=== PATIENT | male | born 1950 | race Caucasian/White ===

== ENCOUNTER 2018-11-27 06:55 | Inpatient (IN) | payer MEDICARE, SELFPAY ==
[2018-11-27] VITALS (17 sets, daily range): BP systolic 105–163; BP diastolic 69–129; PULSE 51–123; RESP 16–19; TEMP 36.4–36.7; O2SAT 93–99; BMI 33.1; BMI 32.0
--- NOTE | 2018-11-27 07:04 | EKG12_ITS ---
Test Reason : NEURO Blood Pressure : / mmHG Vent. Rate : 111 BPM Atrial Rate : 111 BPM P-R Int : 000 ms QRS Dur : 090 ms QT Int : 352 ms P-R-T Axes : 000 -28 013 degrees QTc Int : 478 ms Atrial fibrillation with rapid ventricular response Leftward axis Low voltage QRS (LIMB LEADS) Abnormal ECG Confirmed by BRENDA LOYA, JAIMIE ([id number]), rewrite editor PETER PATEL ([id number]) on 11/30/2018 1:36:29 PM Referred By: [facility] Confirmed By:JAIMIE GUTIERREZ MD
--- NOTE | 2018-11-27 07:04 | CT_ITS ---
We are attempting to reach an attending provider to discuss findings. An addendum with communication details will be sent when the communication is complete. HISTORY: APHASIA EXAMINATION: CT Head or Brain W/O Contrast TECHNIQUE: Multiple axial images were obtained of the brain without intravenous contrast. A radiation dose optimization technique was used for this scan. IV Contrast dosage and agent: None. COMPARISON: None FINDINGS: Normal ventricles. Mild cerebral cortical atrophy. Localized encephalomalacia compatible with remote infarction involving the posterior left frontal cortical and subcortical region. This area measures up to 3 cm in maximal dimension. This appears old. No mass-effect or acute hemorrhage seen. White matter small vessel chronic ischemic changes. Posterior fossa structures are unremarkable. No suspicious extra-axial fluid collection. Calvarium appears intact. As visualized, the mastoids and paranasal sinuses are clear. CT/Brain/Head without Contrast IMPRESSION: 1. No hemorrhage or acute intracranial disease identified. 2. 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 Individualized dose optimization techniques were used for this CT. at 0736 Reported and signed by: Oniel Zaragoza MD Electronically Signed: Oniel Zaragoza, at 7:35 EDT Tel , Service support ,
[2018-11-27 07:05] LABS: Bedside Glucose 138 mg/dL (70-110)
--- NOTE | 2018-11-27 07:13 | CT_ITS ---
HISTORY: CVA. APHASIA EXAMINATION: CTA Neck WO/W Contrast TECHNIQUE: Routine carotid CT angiogram protocol was performed without and with IV contrast. Nascet criteria using the distal ICAs for comparison were used for evaluation of stenoses. 3D reconstructions were reviewed. A radiation dose optimization technique was used for this scan. IV Contrast dosage and agent: 100 Isovue 370 COMPARISON: None FINDINGS: AORTIC ARCH AND BRANCHES: Normal anatomy, patent. RIGHT CCA: No occlusion, significant stenosis or dissection. RIGHT ICA: No occlusion, significant stenosis or dissection. LEFT CCA: No occlusion, significant stenosis or dissection. LEFT ICA: No occlusion, significant stenosis or dissection. RIGHT VERTEBRAL ARTERY: No occlusion, significant stenosis or dissection. LEFT VERTEBRAL ARTERY: No occlusion, significant stenosis or dissection. IMPRESSION: 1. Negative exam. No carotid stenosis or arterial dissection. 2. Bilateral patency of the vertebral arteries. Individualized dose optimization techniques were used for this CT. at 0751 Reported and signed by: Oniel Zaragoza MD N.B. : The above information has been verbally conveyed by Oniel Zaragoza to Marin Ambrosio MD, on 11/27/2018 07:50:12 (ET). Electronically Signed: Oniel Zaragoza, at 7:49 EDT Tel , Service support , HISTORY: CVA. APHASIA EXAMINATION: CTA Head WO/W Contrast TECHNIQUE: Routine [place]/brain CT angiogram protocol was performed following IV contrast. 3D reconstructions were reviewed. A radiation dose optimization technique was used for this scan. IV Contrast dosage and agent: 100 Isovue 370 COMPARISON: None FINDINGS: Normal contrast filling of the carotid and vertebrobasilar systems. Bilateral filling of the anterior, middle, and posterior cerebral arteries. No aneurysm, vascular malformation, or large vessel occlusion is seen. No arterial dissection identified. Remote appearing infarct with low density encephalomalacia at the posterior left frontal lobe. CT/CTA Head W/WO Contrast IMPRESSION: 1. CTA exam is currently negative. No aneurysm or acute vessel occlusion. No arterial dissection seen. Individualized dose optimization techniques were used for this CT. at 0748 Reported and signed by: Oniel Zaragoza MD N.B. : The above information has been verbally conveyed by Oniel Zaragoza to Marin Ambrosio MD, on 11/27/2018 07:50:12 (ET). Electronically Signed: Oniel Zaragoza, at 7:47 EDT Tel , Service support ,
--- NOTE | 2018-11-27 07:13 | CT_ITS ---
HISTORY: CVA. APHASIA EXAMINATION: CTA Neck WO/W Contrast TECHNIQUE: Routine carotid CT angiogram protocol was performed without and with IV contrast. Nascet criteria using the distal ICAs for comparison were used for evaluation of stenoses. 3D reconstructions were reviewed. A radiation dose optimization technique was used for this scan. IV Contrast dosage and agent: 100 Isovue 370 COMPARISON: None FINDINGS: AORTIC ARCH AND BRANCHES: Normal anatomy, patent. RIGHT CCA: No occlusion, significant stenosis or dissection. RIGHT ICA: No occlusion, significant stenosis or dissection. LEFT CCA: No occlusion, significant stenosis or dissection. LEFT ICA: No occlusion, significant stenosis or dissection. RIGHT VERTEBRAL ARTERY: No occlusion, significant stenosis or dissection. LEFT VERTEBRAL ARTERY: No occlusion, significant stenosis or dissection. IMPRESSION: 1. Negative exam. No carotid stenosis or arterial dissection. 2. Bilateral patency of the vertebral arteries. Individualized dose optimization techniques were used for this CT. at 0751 Reported and signed by: Oniel Zaragoza MD N.B. : The above information has been verbally conveyed by Oniel Zaragoza to Marin Ambrosio MD, on 11/27/2018 07:50:12 (ET). Electronically Signed: Oniel Zaragoza, at 7:49 EDT Tel , Service support , HISTORY: CVA. APHASIA EXAMINATION: CTA Head WO/W Contrast TECHNIQUE: Routine [place]/brain CT angiogram protocol was performed following IV contrast. 3D reconstructions were reviewed. A radiation dose optimization technique was used for this scan. IV Contrast dosage and agent: 100 Isovue 370 COMPARISON: None FINDINGS: Normal contrast filling of the carotid and vertebrobasilar systems. Bilateral filling of the anterior, middle, and posterior cerebral arteries. No aneurysm, vascular malformation, or large vessel occlusion is seen. No arterial dissection identified. Remote appearing infarct with low density encephalomalacia at the posterior left frontal lobe. CT/CTA Neck W/WO Contrast IMPRESSION: 1. CTA exam is currently negative. No aneurysm or acute vessel occlusion. No arterial dissection seen. Individualized dose optimization techniques were used for this CT. at 0748 Reported and signed by: Oniel Zaragoza MD N.B. : The above information has been verbally conveyed by Oniel Zaragoza to Marin Ambrosio MD, on 11/27/2018 07:50:12 (ET). Electronically Signed: Oniel Zaargoza, at 7:47 EDT Tel , Service support ,
--- NOTE | 2018-11-27 07:15 | RAD_ITS ---
HISTORY: Chest Pain EXAMINATION/TECHNIQUE: XR Chest 1 View: COMPARISON: None FINDINGS: EKG leads in place. Limited inspiration with secondary hypoventilation of the lung bases, more so on the right. Borderline cardiomegaly. No acute infiltrate seen. No vascular congestion or pleural effusion. No pneumothorax. The bony thorax appears intact. RAD/Chest 1 View IMPRESSION: Limited inspiration. No definite acute cardiopulmonary disease. at 0800 Reported and signed by: Oniel Zaragoza MD Electronically Signed: Oniel Zaragoza, at 7:59 EDT Tel , Service support ,
[2018-11-27 07:17] LABS: Absolute Lymphocyte Count 1.18 X10^3/ul (0.83-4.51); Absolute Neutrophil Count 6.2 X10^3/uL (2.0-7.7); Basophil# 0.02 X10^3/uL; Basophil% 0.2 % (0-1); Eosinophil# 0.06 X10^3/uL; Eosinophils% 0.7 % (0-5); Hematocrit 48.5 % (40-54); Hemoglobin 17.2 g/dl (13.0-16.5); Lymphocyte # 1.18 X10^3/ul (4.0); Lymphocyte % 14.4 % (19-41); Mean Corp Hgb Conc 35.5 g/gl (32-36); Mean Corpuscular Hgb 30.6 pg (27.0-32.0); Mean Corpuscular Volume 86.3 fL (80-94); Mean Platelet Vol. 10.2 fl (6.2-12.0); Monocyte# 0.73 X10^3/uL; Monocyte% 8.9 % (0-10); Neutrophil # 6.22 X10^3/uL (2.7-7.7); Neutrophil % 75.7 % (47-70); Platelet Count 177 K/mm3 (150-450); RBC Distribution Width CV 13.3 % (11.6-14.6); RBC Distribution Width SD 41.9 fl (35.1-43.9); Red Blood Count 5.62 M/mm3 (4.6-6.2); White Blood Count 8.2 K/mm3 (4.4-11.0)
[2018-11-27 07:19] LABS: POSITIVE COUNT NO; POSITIVE DIFFERENTIAL NO; POSITIVE MORPHOLOGY NO
[2018-11-27 07:20] LABS: International Normalized Ratio 1.2; Prothrombin Time (Protime)PT. 14.5 SECONDS (11.7-14.9)
[2018-11-27 07:21] LABS: Partial Thromboplast Time 31.3 Seconds (24.1-36.2)
[2018-11-27 07:30] LABS: Anion Gap 7 (5-15); BUN 16 mg/dL (7-18); BUN/Creat Ratio 14.4 RATIO (10-20); Calcium,Total 8.7 mg/dL (8.5-10.1); Chloride 108 mmol/L (98-107); Creatinine, Serum 1.11 mg/dL (0.70-1.30); EST Glomerular Filtration Rate 70 mL/min (>60); Est Glom Filt Rate - Afr Amer 85 mL/min (>60); Estimated Creatinine Clearance 70.88 ml/min; Glucose 111 mg/dL (74-106); Sodium Level 141 mmol/L (136-145)
--- OUTSIDE RECORDS SUMMARY | 2018-11-27 07:30 | XMS RPT_ITS | CCD ---
:1950 External Reference #:[id number] Author Organization [employer] Care Team Providers Name Role Phone Unavailable Unavailable Unavailable Problems Category Problem Name Status Date Location Cancer of colon Malignant neoplasm of Active 05-29-2015 - [facility] colon, unspecified [facility] ([id number]) Unclassified Unknown / UNK(Unknown) Active 01-29-2017 - [facility] ([id number]) Results Result Name Value Range Unit Interpretation Flag Date Location progress on 2017-08-05 PROGRESS HNO ID: [id number]: Jessika (Internal Controls Specialist) Normal 08-05-2017 [facility] CarpenterService: (none)Author Type: Clinic Nurse PractitionerType: Progress [facility] NotesFiled: 08/05/2017 2:52 PMNote ([id number]) Text:Chief ComplaintPatient presents with:Established PatientHPI:Neil Romero is a 67 year old male who presents here today for followup colon cancer.H/o worsening fatigue over the summer 2011. He underwent CBC which showedhemoglobin level in the 6 g/dL range. He received transfusion and wasreferred to Dr. Alvarenga for colonoscopy. This study showed an obstructinglesion in the cecum. Biopsy showed invasive adenocarcinoma.??He underwent a laparoscopic converted to open right hemicolectomy withcreation of ileocolostomy (jblv-mx-qryw 75-mm stapled). Mobilization ofomental pedicle with wrapping of ileocolostomy 05/20/12.??PATHOLOGY:?Terminal ileum, vermiform appendix, cecum, ascending colon, righthemicolectomy - Invasive moderately differentiated colonic adenocarcinoma.-One of forty-four lymph nodes with metastatic adenocarcinoma ().-Terminal ileum, no evidence of tumor.-Appendix, no evidence of tumor.-See comment.?Developed postoperative atrial fibrillation.??Rx parenteral iron due to h/o a fib.??Completed 12 cycles FOLFOX. Last two without oxaliplatin. Completed 01/09.???Dr. Delarosa-Colonoscopy 09/2015.?No complaints.??Appetite:good Energy level:goodDenies fevers. Recent GI illness-lasted 2 days.Resp:denies cough or sobCardiac:denies chest pain/palpitationsGI:denies abd pain, n/v/bloating/moving bowels regularlyGU:denies dysuria/hematuriaExtrem:denies pain to back/bones/jointsNeuro:neuropathy to soles of feet-stableSkin:denies rashes/lesionsHeme:denies bleedingThe ROS is otherwise negative.Past medical history, appointments, medications, allergies reviewed. Nochanges.EXAM:BP 137/100 Pulse 110 Temp 36.6 ?C (97.9 ?F) (Oral) Wt 112.5 kg (248lb) BMI 32.72 kg/a4ZYFEMSAGTR Well appearing, alert, in no acute distress, well-hydrated,well nourished.HEART RRR with normal S1 and S2, no murmursLUNG clear to auscultationLYMPH NODES No cervical lymphadenopathy, No supraclavicularlymphadenopathy and No axillary lymphadenopathy.ABDOMEN bowel sounds normoactive, no bruits, soft, non-tender,non-distended, without organomegaly or palpable massesEXTREMITIES No edemaNEURO Awake, alert and oriented x 3, Normal gait and No involuntarymotions.SKIN Skin color, texture, turgor normal, no suspicious rashes or lesionsLABS:Component Latest Ref Rng AND Units 05/14/2012 07/01/2012 06/07/201307/04/2014 01/09/2015 07/17/2015 01/29/2016 08/01/2016 01/24/2017 08/04/2017CEA 0.0 - 2.9 ng/mL 6.5 (H) 2.2 3.4 (H) 2.4 3.4 (H) 3.1 (H) 2.2 2.9 3.3(H) 2.8 2.3 3.0 (H)ASSESSMENT/PLAN:1. Personal history of colon cancer - ICD9: V10.05, ICD10: Z85.038(primary diagnosis)2. Malignant neoplasm of ascending colon (HCC) - ICD9: 153.6, ICD10: C18.2pT3 pN1 (1 of 44 LNs) M0 moderately differentiated adenocarcinoma of theascending colon.- ?No concerning findings on exam.- ?CT's as indicated.- Colonoscopy due spring Dr. Claudine Alvarenga at .- ?Reviewed CEA with pt. Stable.- Pt. is over 5 years out from surgery.- ?Follow up as needed. Pt. will follow up with PCP for yearly physical.- ?Pt. aware to call office with any questions/concerns.The patient indicates understanding of these issues and agrees with theplan.Jessika Nation CNP cnovsp on 2017-08-05 CNOVSP Visit (SP) Office Normal 08-05-2017 [facility] (JAJA) NEIL ROMERO ([id number]) 1950 MDate Time Provider Department08/05/17 2:00 PM JESSIKA NATION (NAHUN) [facility] During your visit today, we recorded the following information about you: Temperature Pulse Blood (08147) pressure Weight 97.9 degrees 110/minute 137/100 112.5 kgDatrinidad Nation CNP 08/05/2017 2:52 PM SignedChief ComplaintPatient presents with:Established PatientHPI:Neil Romero is a 67 year old male who presents here today for follow upcolon cancer.H/o worsening fatigue over the summer 2011. He underwent CBC which showedhemoglobin level in the 6 g/dL range. He received transfusion and was referredto Dr. Alvarenga for colonoscopy. This study showed an obstructing lesion in thececum. Biopsy showed invasive adenocarcinoma.??He underwent a laparoscopic converted to open right hemicolectomy with creationof ileocolostomy (rhke-gj-wgft 75-mm stapled). Mobilization of omental pediclewith wrapping of ileocolostomy 05/20/12.??PATHOLOGY:?Terminal ileum, vermiform appendix, cecum, ascending colon, righthemicolectomy - Invasive moderately differentiated colonic adenocarcinoma.- One of forty-four lymph nodes with metastatic adenocarcinoma ().-Terminal ileum, no evidence of tumor.- Appendix, no evidence of tumor.-See comment.?Developed postoperative atrial fibrillation.??Rx parenteral iron due to h/o a fib.??Completed 12 cycles FOLFOX. Last two without oxaliplatin. Completed 01/09.???Dr. Delarosa-Colonoscopy 09/2015.?No complaints.??Appetite:good Energy level:goodDenies fevers. Recent GI illness-lasted 2 days.Resp:denies cough or sobCardiac:denies chest pain/palpitationsGI:denies abd pain, n/v/bloating/moving bowels regularlyGU:denies dysuria/hematuriaExtrem:denies pain to back/bones/jointsNeuro:neuropathy to soles of feet-stableSkin:denies rashes/lesionsHeme:denies bleedingThe ROS is otherwise negative.Past medical history, appointments, medications, allergies reviewed. No changes.EXAM:BP 137/100 Pulse 110 Temp 36.6 ?C (97.9 ?F) (Oral) Wt 112.5 kg (248 lb) BMI 32.72 kg/n1BKKPMAQBLR Well appearing, alert, in no acute distress, well-hydrated, wellnourished.HEART RRR with normal S1 and S2, no murmursLUNG clear to auscultationLYMPH NODES No cervical lymphadenopathy, No supraclavicular lymphadenopathy andNo axillary lymphadenopathy.ABDOMEN bowel sounds normoactive, no bruits, soft, non-tender, non-distended,without organomegaly or palpable massesEXTREMITIES No edemaNEURO Awake, alert and oriented x 3, Normal gait and No involuntary motions.SKIN Skin color, texture, turgor normal, no suspicious rashes or lesionsLABS:Component Latest Ref Rng ANDamp; Units 05/14/2012 07/01/2012 06/07/201307/04/2014 01/09/2015 07/17/2015 01/29/2016 08/01/2016 01/24/2017 08/04/2017CEA 0.0 - 2.9 ng/mL 6.5 (H) 2.2 3.4 (H) 2.4 3.4 (H) 3.1 (H) 2.2 2.9 3.3 (H) 2.82.3 3.0 (H)ASSESSMENT/PLAN:1. Personal history of colon cancer - ICD9: V10.05, ICD10: Z85.038 (primarydiagnosis)2. Malignant neoplasm of ascending colon (HCC) - ICD9: 153.6, ICD10: C18.2pT3 pN1 (1 of 44 LNs) M0 moderately differentiated adenocarcinoma of theascending colon.- ?No concerning findings on exam.- ?CT's as indicated.- Colonoscopy due spring Dr. Claudine Alvarenga at .- ?Reviewed CEA with pt. Stable.- Pt. is over 5 years out from surgery.- ?Follow up as needed. Pt. will follow up with PCP for yearly physical.- ?Pt. aware to call office with any questions/concerns.The patient indicates understanding of these issues and agrees with the plan.Jessika Nation CNPReferring Provider: JESSIKA NATION ([facility]) [[id number]]Allergies As of Date: 08/05/2017(No Known Allergies)Date Reviewed: 08/05/2017Reviewed by: Jessika (Internal Controls Specialist) Rios - Fully AssessedReason for Visit: Established Patient [175]Primary Visit Diagnosis:Personal history of colon cancer [Z85.038] Other Visit Diagnosis:Malignant neoplasm of ascending colon (HCC) [C18.2]Follow-up and Disposition History RecordedProblem List As Of Date 08/05/2017 Noted Resolved Colon cancer [C18.9] INVALID FOR* Atrial fibrillation [I48.91] INVALID FOR* Personal history of malignant neoplasm of large*INVALID FOR*06/07/2013 Drug induced neutropenia [D70.2] INVALID FOR* BPH (benign prostatic hyperplasia) [N40.0] INVALID FOR* Urinary retention [R33.9] INVALID FOR*06/07/2013 Nocturia [R35.1] INVALID FOR* Elevated PSA [R97.20] INVALID FOR* Hypertrophy of prostate with urinary obstructio*INVALID FOR* Urinary retention [R33.9] INVALID FOR* Benign non-nodular prostatic hyperplasia withou*INVALID FOR* Malignant neoplasm of colon (HCC) [C18.9] INVALID FOR*Encounter Status:Closed by JESSIKA NATION MEATMAN on 08/05/17 cea on 2017-08-04 CEA 3.0 0.0-2.9 ng/mL High 08-04-2017 [facility] ([id number]) Comment: Result Comment: Test analyzed by the Lorraine DxI method. Performed By: #### CEA ####[facility] [address] [place], [place] [phone] cnco on 2017-04-30 Erythrocyte Letter M[address] Dani[address] [place], Normal 04-30-2017 [facility] [place] Clinic width Auto 48558Mgtqu-[id number]/1/2017RichAt[facility] Ratio (RBC) Nvrhhfg4594 Cr 192FrHendricks Regional Health ([address]) [address]Yulp Mr. Canturix:Due to a change in the provider's schedule, it has been necessary toreschedule yourappointment.Enclosed please find a new appointment reminder that will replace the onepreviously sent to you.If this appointment is not convenient for you, please contact our office [phone].Thank you for choosing the [facility] as your Healthcare Provider.Sincerely,Appointment Office cnco on 2017-04-10 Erythrocyte Letter Klbf068 Rishi [place], [place] Normal 04-10-2017 [facility] distribution 79828Jhebt-[phone]/12/2017[facility] width Auto L Bfqbjol6979 Cr 192FrederFox [facility] Cancer Centerveland Ratio (RBC) [address]Fiio MrRyder CantuRomero:Due to a change in (46935) the provider's schedule, it has been necessary toreschedule your 08/06/17 appointment.Enclosed please find a new appointment reminder that will replace the onepreviously sent to you.If this appointment is not convenient for you, please contact our office [phone].Thank you for choosing the [facility] as your Healthcare Provider.Sincerely,Appointment OfficeEnclosure cnco on 2017 CNCO Letter [address] Normal 2017 [facility] 877[address]Tvjfb-[phone]/03/2017Neil Chow [facility] Drzokjy2479 192[facility] [address]CvwsVid[facility] P[facility] Hospital Mr. Romero:Due to a change in the provider's (59409) schedule, it has been necessary toreschedule yourappointment.Enclosed please find a new appointment reminder that will replace the onepreviously sent to you.If this appointment is not convenient for you, please contact our office [phone].Thank you for choosing the [facility] as your Healthcare Provider.Sincerely,Appointment Office progress on 2017-01-29 PROGRESS HNO ID: [id number]: Jessika ([facility]) Normal 01-29-2017 [facility] CarpenterService: (none)Author Type: Clinic Nurse PractitionerType: Saman [facility] NotesFiled: 01/29/2017 4:47 PMNote ([id number]) Text:Chief ComplaintPatient presents with:Establish CareHPI:Neil Romero is a 66 year old male who presents here today for coloncancer.H/o worsening fatigue over the summer 2011. He underwent CBC which showedhemoglobin level in the 6 g/dL range. He received transfusion and wasreferred to Dr. Alvarenga for colonoscopy. This study showed an obstructinglesion in the cecum. Biopsy showed invasive adenocarcinoma.??He underwent a laparoscopic converted to open right hemicolectomy withcreation of ileocolostomy (erec-yn-higa 75-mm stapled). Mobilization ofomental pedicle with wrapping of ileocolostomy 05/20/12.??PATHOLOGY:Terminal ileum, vermiform appendix, cecum, ascending colon, righthemicolectomy - Invasive moderately differentiated colonic adenocarcinoma.-One of forty-four lymph nodes with metastatic adenocarcinoma ().-Terminal ileum, no evidence of tumor.-Appendix, no evidence of tumor.-See comment.?Developed postoperative atrial fibrillation.??Rx parenteral iron due to h/o a fib.??Completed 12 cycles FOLFOX. Last two without oxaliplatin. Completed 01/09.??Dr. Charlotte Alvarenga-Colonoscopy 09/2015.?No complaints.??Appetite:good Energy level:goodDenies recent fevers or illness.Resp:denies cough or sobCardiac:denies chest pain/palpitationsGI:denies abd pain, n/v/bloating/moving bowels regularlyGU:denies dysuria/hematuriaExtrem:denies pain to back/bones/jointsNeuro:neuropathy to soles of feet-stableSkin:denies rashes/lesionsHeme:denies bleeding?The ROS is otherwise negative.Past medical history, appointments, medications, allergies reviewed. Nochanges.EXAM:BP 114/81 Pulse 62 Temp 36.5 ?C (97.7 ?F) (Oral) Wt 112.5 kg (248lb) BMI 32.72 kg/m4JRFGLIQXEF Well appearing, alert, in no acute distress, well-hydrated,well nourished.HEART RRR with normal S1 and S2, no murmursLUNG clear to auscultationLYMPH NODES No cervical lymphadenopathy, No supraclavicularlymphadenopathy and No axillary lymphadenopathy.ABDOMEN bowel sounds normoactive, no bruits, soft, non-tender,non-distended, without organomegaly or palpable massesEXTREMITIES No edemaNEURO Awake, alert and oriented x 3, Normal gait and No involuntarymotions.SKIN Skin color, texture, turgor normal, no suspicious rashes or lesionsLABS:Component Latest Ref Rng AND Units 07/17/2015 01/29/2016 08/01/2016 01/24/2017CEA 0.0 - 2.9 ng/mL 2.9 3.3 (H) 2.8 2.3ASSESSMENT/PLAN:1. Personal history of colon cancer - ICD9: V10.05, ICD10: Z85.038pT3 pN1 (1 of 44 LNs) M0 moderately differentiated adenocarcinoma of theascending colon.- No concerning findings on exam.- CT's as indicated.- Colonoscopy due spring Dr. Claudine Alvarenga at .- Reviewed CEA with pt. Stable.- Follow up in 6 months with CEA.- Pt. aware to call office with any questions/concerns.?The patient indicates understanding of these issues and agrees with theplan.Jessika Nation, NAHUN cnovsp on 2017-01-29 CNOVSP Visit (SP) Office Normal 01-29-2017 [facility] ([facility]) NEIL ROMERO ([id number]) 1950 MDate Time Provider Department01/29/17 2:30 PM JESSIKA NATION (MEATMAN) [facility] During your visit today, we recorded the following information about you: Temperature Pulse Blood (29029) pressure Weight 97.7 degrees 62/minute 114/81 112.5 kgMichelle Mcgowan LPN 01/29/2017 2:27 PM SignedEstablish Patient, 6 month follow-up, review LabsSurvivorship Care PlanMichelle Nation CNP 01/29/2017 4:47 PM SignedChief ComplaintPatient presents with:Establish CareHPI:Neil Romero is a 66 year old male who presents here today for coloncancer.H/o worsening fatigue over the summer 2011. He underwent CBC which showedhemoglobin level in the 6 g/dL range. He received transfusion and was referredto Dr. Alvarenga for colonoscopy. This study showed an obstructing lesion in thececum. Biopsy showed invasive adenocarcinoma.??He underwent a laparoscopic converted to open right hemicolectomy with creationof ileocolostomy (mksp-is-agpt 75-mm stapled). Mobilization of omental pediclewith wrapping of ileocolostomy 05/20/12.??PATHOLOGY:Terminal ileum, vermiform appendix, cecum, ascending colon, righthemicolectomy - Invasive moderately differentiated colonic adenocarcinoma.-One of forty-four lymph nodes with metastatic adenocarcinoma ().-Terminal ileum, no evidence of tumor.-Appendix, no evidence of tumor.-See comment.?Developed postoperative atrial fibrillation.??Rx parenteral iron due to h/o a fib.??Completed 12 cycles FOLFOX. Last two without oxaliplatin. Completed 01/09.??Dr. Charlotte Alvarenga-Colonoscopy 09/2015.?No complaints.??Appetite:good Energy level:goodDenies recent fevers or illness.Resp:denies cough or sobCardiac:denies chest pain/palpitationsGI:denies abd pain, n/v/bloating/moving bowels regularlyGU:denies dysuria/hematuriaExtrem:denies pain to back/bones/jointsNeuro:neuropathy to soles of feet-stableSkin:denies rashes/lesionsHeme:denies bleeding?The ROS is otherwise negative.Past medical history, appointments, medications, allergies reviewed. No changes.EXAM:BP 114/81 Pulse 62 Temp 36.5 ?C (97.7 ?F) (Oral) Wt 112.5 kg (248 lb) BMI 32.72 kg/m4XQKGPPNACC Well appearing, alert, in no acute distress, well-hydrated, wellnourished.HEART RRR with normal S1 and S2, no murmursLUNG clear to auscultationLYMPH NODES No cervical lymphadenopathy, No supraclavicular lymphadenopathy andNo axillary lymphadenopathy.ABDOMEN bowel sounds normoactive, no bruits, soft, non-tender, non-distended,without organomegaly or palpable massesEXTREMITIES No edemaNEURO Awake, alert and oriented x 3, Normal gait and No involuntary motions.SKIN Skin color, texture, turgor normal, no suspicious rashes or lesionsLABS:Component Latest Ref Rng ANDamp; Units 07/17/2015 01/29/2016 08/01/2016 01/24/2017CEA 0.0 - 2.9 ng/mL 2.9 3.3 (H) 2.8 2.3ASSESSMENT/PLAN:1. Personal history of colon cancer - ICD9: V10.05, ICD10: Z85.038pT3 pN1 (1 of 44 LNs) M0 moderately differentiated adenocarcinoma of theascending colon.- No concerning findings on exam.- CT's as indicated.- Colonoscopy due spring Dr. Claudine Alvarenga at .- Reviewed CEA with pt. Stable.- Follow up in 6 months with CEA.- Pt. aware to call office with any questions/concerns.?The patient indicates understanding of these issues and agrees with the plan.Jessika Nation CNPReferring Provider: JESSIKA NATION (MEATMAN) [[id number]]Allergies As of Date: 01/29/2017(No Known Allergies)Date Reviewed: 01/29/2017Reviewed by: Jessika Awan) Rios - Fully AssessedReason for Visit: [facility] [42]Primary Visit Diagnosis:Personal history of colon cancer [Z85.038]Follow-up and Disposition History RecordedMedication notes this encounter CRANBERRY CONCENTRATE ORAL >> Michelle Rishi Ontiveroser FRUIT PEELER 01/29/2017 2:02 PM >> JUAN M MICHELLE E FRUIT PEELER FriJan 29, 2017 2:02 PM DiscontinuedProblem List As Of Date 01/29/2017 Noted Resolved Colon cancer [C18.9] INVALID FOR* Atrial fibrillation [I48.91] INVALID FOR* Personal history of malignant neoplasm of large*INVALID FOR*06/07/2013 Drug induced neutropenia [D70.2] INVALID FOR* BPH (benign prostatic hyperplasia) [N40.0] INVALID FOR* Urinary retention [R33.9] INVALID FOR*06/07/2013 Nocturia [R35.1] INVALID FOR* Elevated PSA [R97.20] INVALID FOR* Hypertrophy of prostate with urinary obstructio*INVALID FOR* Urinary retention [R33.9] INVALID FOR* Benign non-nodular prostatic hyperplasia withou*INVALID FOR* Malignant neoplasm of colon (HCC) [C18.9] INVALID FOR*Visit Notes:>> Michelle Blackwell Juan M FRUIT PEELER FriJan 29, 2017 2:04 PM Status: SignedEstablish Patient, 6 month follow-up, review LabsSurvivorship Care Xochilt Mcgowan LPNEncounter Status:Closed by JESSIKA NATION CNP on 01/29/17 cea on 2017-01-24 CEA 2.3 0.0-2.9 ng/mL Normal 01-24-2017 [facility] ([id number]) Comment: Result Comment: Test analyzed by the Lorraine DxI method. Performed By: #### CEA ####[facility] [address] [place], [place] [phone] Encounters Date Type Reason Provider Location 08-05-2017 - Ambulatory JESSIKA AWAN) [facility] 08-07-2017 JESSIKA AWAN) RIOS [facility] ([id number]) 08-04-2017 - Ambulatory JESSIKA AWAN) [facility] 08-04-2017 [facility] ([id number]) 01-29-2017 - Ambulatory JESSIKA (MEATMAN) [facility] 01-30-2017 JESSIKA (MEATMAN) [facility] ([id number]) 01-24-2017 - Ambulatory JAIMIE BHATT [facility] 01-24-2017 [facility] ([id number]) Summary Purpose DATE CREATED AUTHOR AUTHOR'S ORGANIZATION 12/22/2017 [facility] Family History No Family History Records Found Advance Directives No Advanced Directives Records Found Additional Source Comments FOR RECORDS PERTAINING TO PATIENTS WHO ARE OR HAVE BEEN ENROLLED IN A CHEMICAL DEPENDENCY/SUBSTANCE ABUSE PROGRAM, SOME INFORMATION MAY BE OMITTED. This clinical summary was aggregated from multiple sources. Caution should be exercised in using it in the provision of clinical care. This summary normalizes information from multiple sources, and as a consequence, information in this document may materially changethe coding, format and clinical context of patient data. In addition, data may be omittedin some cases. CLINICAL DECISIONS SHOULD BE BASED ON THE PRIMARY CLINICAL RECORDS. [facility] provides no warranty or guarantee of the accuracy or completeness of information in this document. UNRECOGNIZED CONTENT PROVIDED BELOW FOR UNRECOGNIZED SECTION No Status Records Found UNRECOGNIZED CONTENT PROVIDED BELOW FOR UNRECOGNIZED SECTION INFORMATION SOURCE DATE CREATED AUTHOR AUTHOR'S ORGANIZATION 12/22/2017 [facility]
--- NOTE | 2018-11-27 08:05 | ED.VIS.GEN ---
History of Present Illness Chief Complaint: Neuro S/Sx Informant: Family Limited by: - - expressive aphasia Onset: - - unclear Current Severity: Moderate Maximum Severity: Moderate Narrative: 68-year-old male presents with expressive aphasia. 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 He was able to back his truck into the parking space and then called his son at 4:33 AM. His son states that he could not understand him on the phone so he told him to lay in the sleeper cab until he arrived. His family then drove to [employer] to pick him up. He was able to walk into the office at the receiving plant and was able to walk to get into the family members car but his speech was nonsensical. It is unclear exactly when it started but his family believes that it may have actually started before he left the house because he left all of his lights on which is highly unusual for him and there were other signs that he may have been confused when he left the house. Additionally, yesterday he had many things to take care of at his home in preparation for his daughter's wedding tomorrow and he did not get up until very late and he normally gets up extremely early every morning. They felt that he was moving somewhat slower than usual yesterday as well. He has no previous history of stroke or atrial fibrillation but was in atrial fibrillation on arrival here. After an extensive discussion with family and then reviewing his cell phone and consulting with family members, the last known well time was determined to be 6:30 PM last night. Capacity - Capacity Assessment Tool Can the patient make a choice & communicate that choice?: Yes Past Medical History - Allergies and Home Meds Allergies/Adverse Reactions: Allergies No Known Allergies Allergy (Verified 11/27/18 07:01) Primary Care Physician: Geraldo Blackwood [Primary Care Provider] - Prior records reviewed: Yes Past Medical History: - - colon cancer Smoking Status: Never smoker Review of Systems General: Denies: Chills, Fever, Sweats Eyes: Denies: Visual changes - bilaterally, Diplopia ENT: Denies: Rhinorrhea, Sore throat Cardiovascular: Denies: Chest pain, Palpitations Respiratory: Denies: Dyspnea, Cough, Dyspnea on exertion Gastrointestinal: Denies: Abdominal pain, Nausea, Vomiting, Diarrhea, Melena, Hematochezia Genitourinary: Denies: Dysuria, Hematuria, Frequency Musculoskeletal: Denies: Back pain, Extremity Pain Skin: Denies: Rash, Wounds Neurological: Reports: - - expressive aphasia. Denies: Headache, Weakness, Numbness Physical Exam Vital Signs/Narrative: Vital Signs Temp Pulse Resp BP Pulse Ox 11/27/18 07:34 119 H 18 161/97 H 97 11/27/18 07:29 98 F 123 H 19 H 127/100 H 98 11/27/18 07:04 121 H 18 159/117 H 95 11/27/18 07:02 110 H 18 163/129 H 97 11/27/18 06:58 98.0 F 123 H 18 127/100 H 95 General: Well nourished, Well developed, No Acute Distress Head: Normocephalic, Atraumatic Eyes: Perrl, EOMI ENT: Moist mucous membranes, No rhinorrhea Neck: Supple, Nontender Cardiovascular: Regular rate, Regular rhythm, No murmurs Respiratory: No distress, CTA bilaterally, Chest nontender Abdomen: Soft, Nontender, Nondistended, Normal bowel sounds Back: Nontender, Normal Inspection Extremities: Nontender, No edema Skin: Normal color, No rash Neurological: Alert, Cranial nerves II-XII grossly intact, Normal Strength, Normal Sensation, - - NIH=6 Psychological: Normal affect, Normal Mood Diagnostic/Tx/Re-eval Chest X-Ray - ED: 1 View, Read by Radiologist, Normal, Heart, Lungs, Bony Structures, No Acute Disease - Rhythm Strip Rhythm Strip: A-fib Rate: 111 Ectopy: None - Medical Decision Making Stroke team was activated on arrival. His initial noncontrast brain CT was reviewed by the radiologist to call me with the results. There was no evidence of bleeding. I discussed the case with Dr. Toribio, the on-call stroke specialist, and he advised that I speak with the family again to determine for sure the last known well time. We are unable to verify that he was at normal when he left the house at 2 AM and family is concerned that his symptoms may have actually started then. We therefore were all in agreement that the last known well time was 6:30 PM last night and felt that he was outside of the window for TPA and that it would be too dangerous to deliver the TPA at this point. He is in atrial fibrillation here. His other labs are fairly unremarkable. His symptoms stayed fairly consistent while here in the emergency department. His speech is clear and at times, he does seem to communicate correct information. He is able to tell me that his daughter's wedding is tomorrow at 3 PM however when I asked him if he is having chest pain, he begins talking about his feet. His initial NIH was 6, for inability to follow commands, orientation questions, and expressive aphasia. Dr. Toribio did not recommend TPA administration but did recommend a CT angiogram and admission here if the CT angiogram is negative for large vessel occlusion, which it was. I discussed the case with the hospitalist and updated the family members at the bedside. We will admit him here to telemetry. - Critical Care Time Critical care time (excluding procedures): 30-74 minutes, Discussing w/Patient &/or Family/Patrol Lady, Discussing w/Consultants, Arranging Admission or Transfer, Performing Direct Patient Care at Bedside ED Disposition - Plan for ED Patient: Disposition: Acute Care Hospital [facility] Diagnosis: Acute ischemic stroke Referrals: Geraldo Blackwood [Primary Care Provider] -
--- NOTE | 2018-11-27 08:13 | ED.DCSUM_ITS ---
History of Present Illness Chief Complaint: Neuro S/Sx Informant: Family Limited by: - - expressive aphasia Onset: - - unclear Current Severity: Moderate Maximum Severity: Moderate Narrative: 68-year-old male presents with expressive aphasia. 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 He was able to back his truck into the parking space and then called his son at 4:33 AM. His son states that he could not understand him on the phone so he told him to lay in the sleeper cab until he arrived. His family then drove to [employer] to pick him up. He was able to walk into the office at the receiving plant and was able to walk to get into the family members car but his speech was nonsensical. It is unclear exactly when it started but his family believes that it may have actually started before he left the house because he left all of his lights on which is highly unusual for him and there were other signs that he may have been confused when he left the house. Additionally, yesterday he had many things to take care of at his home in preparation for his daughter's wedding tomorrow and he did not get up until very late and he normally gets up extremely early every morning. They felt that he was moving somewhat slower than usual yesterday as well. He has no previous history of stroke or atrial fibrillation but was in atrial fibrillation on arrival here. After an extensive discussion with family and then reviewing his cell phone and consulting with family members, the last known well time was determined to be 6:30 PM last night. Capacity - Capacity Assessment Tool Can the patient make a choice & communicate that choice?: Yes Past Medical History - Allergies and Home Meds Allergies/Adverse Reactions: Allergies No Known Allergies Allergy (Verified 11/27/18 07:01) Primary Care Physician: Geraldo Blackwood [Primary Care Provider] - Prior records reviewed: Yes Past Medical History: - - colon cancer Smoking Status: Never smoker Review of Systems General: Denies: Chills, Fever, Sweats Eyes: Denies: Visual changes - bilaterally, Diplopia ENT: Denies: Rhinorrhea, Sore throat Cardiovascular: Denies: Chest pain, Palpitations Respiratory: Denies: Dyspnea, Cough, Dyspnea on exertion Gastrointestinal: Denies: Abdominal pain, Nausea, Vomiting, Diarrhea, Melena, Hematochezia Genitourinary: Denies: Dysuria, Hematuria, Frequency Musculoskeletal: Denies: Back pain, Extremity Pain Skin: Denies: Rash, Wounds Neurological: Reports: - - expressive aphasia. Denies: Headache, Weakness, Numbness Physical Exam Vital Signs/Narrative: Vital Signs Temp Pulse Resp BP Pulse Ox 11/27/18 07:34 119 H 18 161/97 H 97 11/27/18 07:29 98 F 123 H 19 H 127/100 H 98 11/27/18 07:04 121 H 18 159/117 H 95 11/27/18 07:02 110 H 18 163/129 H 97 11/27/18 06:58 98.0 F 123 H 18 127/100 H 95 General: Well nourished, Well developed, No Acute Distress Head: Normocephalic, Atraumatic Eyes: Perrl, EOMI ENT: Moist mucous membranes, No rhinorrhea Neck: Supple, Nontender Cardiovascular: Regular rate, Regular rhythm, No murmurs Respiratory: No distress, CTA bilaterally, Chest nontender Abdomen: Soft, Nontender, Nondistended, Normal bowel sounds Back: Nontender, Normal Inspection Extremities: Nontender, No edema Skin: Normal color, No rash Neurological: Alert, Cranial nerves II-XII grossly intact, Normal Strength, Normal Sensation, - - NIH=6 Psychological: Normal affect, Normal Mood Diagnostic/Tx/Re-eval Chest X-Ray - ED: 1 View, Read by Radiologist, Normal, Heart, Lungs, Bony Structures, No Acute Disease - Rhythm Strip Rhythm Strip: A-fib Rate: 111 Ectopy: None - Medical Decision Making Stroke team was activated on arrival. His initial noncontrast brain CT was reviewed by the radiologist to call me with the results. There was no evidence of bleeding. I discussed the case with Dr. Toribio, the on-call stroke specialist, and he advised that I speak with the family again to determine for sure the last known well time. We are unable to verify that he was at normal when he left the house at 2 AM and family is concerned that his symptoms may have actually started then. We therefore were all in agreement that the last known well time was 6:30 PM last night and felt that he was outside of the window for TPA and that it would be too dangerous to deliver the TPA at this point. He is in atrial fibrillation here. His other labs are fairly unremarkable. His symptoms stayed fairly consistent while here in the emergency department. His speech is clear and at times, he does seem to communicate correct information. He is able to tell me that his daughter's wedding is tomorrow at 3 PM however when I asked him if he is having chest pain, he begins talking about his feet. His initial NIH was 6, for inability to follow commands, orientation questions, and expressive aphasia. Dr. Toribio did not recommend TPA administration but did recommend a CT angiogram and admission here if the CT angiogram is negative for large vessel occlusion, which it was. I discussed the case with the hospitalist and updated the family members at the bedside. We will admit him here to telemetry. - Critical Care Time Critical care time (excluding procedures): 30-74 minutes, Discussing w/Patient &/or Family/Assistant Production Editor, Discussing w/Consultants, Arranging Admission or Transfer, Performing Direct Patient Care at Bedside ED Disposition - Plan for ED Patient: Disposition: Acute Care [facility] Diagnosis: Acute ischemic stroke Referrals: Geraldo Blackwood [Primary Care Provider] -
--- NOTE | 2018-11-27 08:44 | ECHOD_ITS ---
Reason For Study: TIA/CVA Procedure This was a 2D Doppler, Color Flow transthoracic echocardiogram. The study was technically difficult. Contrast injection was performed. Exam performed portable in patient room. Left Ventricle Normal LV size. Left ventricular systolic function is normal. The estimated ejection fraction is 55 %. Unable to assess diastolic dysfunction. No regional wall motion abnormalities noted. Right Ventricle Normal RV size. Normal systolic function. Atria The left atrium is mildly enlarged. The right atrium is mildly enlarged. No doppler evidence for ASD. Bubble contrast study negative for right to left interatrial shunt. Mitral Valve There is no mitral annular calcification. Normal mitral valve. Mild (1+) mitral valve insufficiency. Tricuspid Valve Normal tricuspid valve. Trivial tricuspid valve insufficiency. Right ventricular systolic pressure estimated to be 30 mmHg. Aortic Valve Trisinus/trileaflet aortic valve. Normal aortic valve. Pulmonic Valve The pulmonic valve is not well visualized. Trivial pulmonic valve insufficiency. Great Vessels Normal sized aortic root. Pericardium/Pleural No pericardial effusion. Medication Performed a rapid injection of agitated mix of 9 cc saline and 1cc air to assess for atrial septal defect. Diluted definity 4ml given slow IV push to enhance endocardial definition. MMode/2D Measurements & Calculations LVIDd: 5.7 cm IVSd: 1.2 cm Ao root diam: 3.3 cm LVIDs: 4.4 cm LVPWd: 1.4 cm RVDd: 3.8 cm FS: 22.9 % LAV(MOD-bp): 53.2 ml LVAd ap4: 35.7 cm2 SV(MOD-sp4): 65.2 ml LAV(MOD-bp) Indexed: 23.1 ml/m2 EDV(MOD-sp4): 125.6 ml LAV(MOD-sp2): 69.3 ml EDV(sp4-el): 127.7 ml LAV(MOD-sp4): 39.5 ml LVAs ap4: 22.7 cm2 ESV(MOD-sp4): 60.4 ml ESV(sp4-el): 58.1 ml EF(MOD-sp4): 51.9 % EF(sp4-el): 54.5 % SV(sp4-el): 69.6 ml LA A4 area: 16.1 cm2 LA dimension(2D): 4.6 cm RA A4 area: 19.8 cm2 Doppler Measurements & Calculations MV E max catalina: 105.8 cm/sec Ao V2 max: 100.7 cm/sec LV V1 max: 69.7 cm/sec Ao max P.1 mmHg LV V1 max P.9 mmHg Ao V2 mean: 75.9 cm/sec Ao mean P.4 mmHg Ao V2 VTI: 17.9 cm PA V2 max: 87.0 cm/sec TR max catalina: 234.8 cm/sec TR max P.0 mmHg Interpretation Summary The study was technically difficult. Contrast injection was performed. Left ventricular systolic function is normal. The estimated ejection fraction is 55 %. The left atrium is mildly enlarged. The right atrium is mildly enlarged. Mild (1+) mitral valve insufficiency. Trivial tricuspid valve insufficiency. Trivial pulmonic valve insufficiency. Right ventricular systolic pressure estimated to be 30 mmHg. Unable to assess diastolic dysfunction. Ordering Physician: Kristopher Villalpando Referring Physician: Geraldo Blackwood Performed By: Bell Patel RDCS, RVT
--- NOTE | 2018-11-27 08:44 | MRI_ITS ---
We are attempting to reach an attending provider to discuss findings. An addendum with communication details will be sent when the communication is complete. STUDY: MRI BRAIN WITHOUT CONTRAST REASON FOR EXAM: Male, 68 years old. CVA . Confusion since 4:00 AM TECHNIQUE: Standardized multiplanar fat and water weighted pulse sequences were obtained. COMPARISON: None.. FINDINGS: There is restricted diffusion in the left temporoparietal region in the distribution of the middle cerebral artery. This is consistent with an acute infarction. There is a focal area of old infarction in the left frontal lobe There is no evidence of acute hemorrhage and no indication of any intra or extra-axial tumor. The ventricles, basal cisterns and cortical sulci are normal for the patient's age with no midline shift. The pituitary and pineal regions are normal. The brainstem is normal. The corpus callosum is normal. The 7th and 8th nerve complexes are normal. Both cerebellopontine angles are clear. The cerebellar vermis and lobes are normal. The calvarium is intact. There are no scalp swelling. The vessels at the base of the brain are normal. The orbits, paranasal sinuses and mastoid air cells are normal.. MRI/Brain without Contrast IMPRESSION: An acute infarction in the distribution of left middle cerebral artery. A small 2.8 x 1.1 cm area of old infarction involving the left frontal lobe Electronically Signed: Kishore Zimmerman MD at 15:04 EDT Tel , Service support ,
[2018-11-27] MEDS: 0.9% Normal Saline 1,000 ML 100 ML IV ×2 (10:57→21:09)
--- NOTE | 2018-11-27 11:29 | PCM.CONS.GEN ---
Reason for Consult Date of Consultation: 11/27/18 Reason for Consultation: cva History of Present Illness: The patient is a 68 year old M admitted as below. He was last known well yesterday at 6:30 PM. 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 Apparently he does not have a history of atrial fibrillation but this is new now. His ex- and 2 daughters are present for the interview and confirmed the history as well. Also has a history of feet pain bilaterally which is only complaint right now but this appears to be chronic since he had chemotherapy for colon cancer which has been in remission for 7 years. per er note:68-year-old male presents with expressive aphasia. 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 He was able to back his truck into the parking space and then called his son at 4:33 AM. His son states that he could not understand him on the phone so he told him to lay in the sleeper cab until he arrived. His family then drove to [employer] to pick him up. He was able to walk into the office at the receiving plant and was able to walk to get into the family members car but his speech was nonsensical. It is unclear exactly when it started but his family believes that it may have actually started before he left the house because he left all of his lights on which is highly unusual for him and there were other signs that he may have been confused when he left the house. Additionally, yesterday he had many things to take care of at his home in preparation for his daughter's wedding tomorrow and he did not get up until very late and he normally gets up extremely early every morning. They felt that he was moving somewhat slower than usual yesterday as well. He has no previous history of stroke or atrial fibrillation but was in atrial fibrillation on arrival here. After an extensive discussion with family and then reviewing his cell phone and consulting with family members, the last known well time was determined to be 6:30 PM last night. Past Medical History Allergies No Known Allergies Allergy (Verified 11/27/18 07:01) Home Medications: Ambulatory Orders Medication Instructions Recorded NK 11/27/18 Smoking Status: Never smoker Review of Systems Constitutional: Denies: Chills, Fever, Weight Change HEENT: Denies: Head Aches, Sinus Congestion, Sinus Drainage Cardiovascular: Denies: Chest Pain, Palpitations Respiratory: Denies: Cough, Shortness of breath at rest, Sputum production Gastrointestinal: Denies: Abdominal Pain, Nausea, Vomiting Genitourinary: Denies: Dysuria Musculoskeletal: Denies: Joint Pain, Joint Tenderness Skin: Denies: Rash, Wounds Neurological: Denies: Numbness, Tingling, Focal weakness Psychiatric: Denies: Anxiety, Depression, Homicidal Ideations, Suicidal Ideations Hematologic/ Lymphatic: Denies: Easy Bruising, Easy Bleeding Patient Problems: Active and Suspected Problems Acute ischemic stroke (Acute) - Physical Exam General: Alert, Oriented x3, Cooperative HEENT: Atraumatic, PERRLA, EOMI, Normocephalic Neck: Supple, No JVD, Negative Carotid Bruits Lungs: Clear to auscultation, Normal air movement Cardiovascular: Regular rate, No murmurs Abdomen: Bowel Sounds Present, Soft, Non Tender Extremities: No edema, Capillary Refill Less than 3 Seconds Skin: No rashes, No breakdown Musculoskeletal: No Tenderness to Palpation of Joints or Extremities Neurological: - - Awake and alert. He is unable to tell me his age or the month. He follows simple commands variably. There appears to be a right visual field cut, but no facial asymmetry. There may be some very mild weakness in his right upper and right lower extremity but there does not appear to be any sensory extinction, no pronator drift, and no discoordination with forearm orbit testing. There is severe aphasia. NIH stroke score is 5 Psych/Mental Status: Normal Affect, Appropriate Vital Signs Temp Pulse Resp BP Pulse Ox 36.6 C 107 H 16 154/99 H 96 11/27/18 09:02 11/27/18 09:13 11/27/18 09:02 11/27/18 09:02 11/27/18 09:02 Oxygen Delivery Method Room Air Weight: 107.1 kg Body Mass Index (BMI) 32.0 Finger Stick Blood Glucose 138 Laboratory Tests Past 24 Hrs 11/27/18 11/27/18 11/27/18 07:00 07:00 07:00 WBC 8.2 RBC 5.62 Hgb 17.2 H Hct 48.5 MCV 86.3 MCH 30.6 MCHC 35.5 RDW 13.3 RDW Differential 41.9 Plt Count 177 MPV 10.2 Immature Gran % (Auto) 0.100 Neut % (Auto) 75.7 H Lymph % (Auto) 14.4 L Grady % (Auto) 8.9 Eos % (Auto) 0.7 Baso % (Auto) 0.2 Absolute Neuts (auto) 6.2 Absolute Lymphs (auto) 1.18 Total Counted Not Reportable PT 14.5 INR 1.2 APTT 31.3 Sodium 141 Potassium 4.0 Chloride 108 H Carbon Dioxide 26.0 Anion Gap 7 BUN 16 Creatinine 1.11 Estim Creat Clear Calc 70.88 Est GFR (MDRD) Af Amer 85 Est GFR (MDRD) Non-Af 70 BUN/Creatinine Ratio 14.4 Glucose 111 H Calcium 8.7 Troponin I < 0.015 POC Glucose 11/27/18 06:59 POC Gl[address] and CTA reviewed. No acute. There does not appear to be any significant vascular stenosis Assessment/Plan All Active Problems Acute ischemic stroke (Acute) Acute left MCA distribution stroke, likely due to A. fib. PT/OT/speech therapy await MRI If MRI discloses a moderate to large stroke which I expected will will need Eliquis but would like to delay initiation due to risk of PHYSICAL THERAPY COORDINATOR bleeding until up to 7 days after the onset of his symptoms which would be 12/02/2018 Await echo results He is otherwise okay to be discharged home, with outpatient follow-up, however I would recommend no driving
--- NOTE | 2018-11-27 11:33 | CON.PCM_ITS ---
Reason for Consult Date of Consultation: 11/27/18 Reason for Consultation: cva History of Present Illness: The patient is a 68 year old M admitted as below. He was last known well yesterday at 6:30 PM. 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 Apparently he does not have a history of atrial fibrillation but this is new now. His ex- and 2 daughters are present for the interview and confirmed the history as well. Also has a history of feet pain bilaterally which is only complaint right now but this appears to be chronic since he had chemotherapy for colon cancer which has been in remissi on for 7 years. per er note:68-year-old male presents with expressive aphasia. 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 He was able to back his truck into the parking space and then called his son at 4:33 AM. His son states that he could not understand him on the phone so he told him to lay in the sleeper cab until he arrived. His family then drove to [place] to pick him up. He was able to walk into the office at the receiving plant and was able to walk to get into the family members car but his speech was nonsensical. It is unclear exactly when it started but his family believes that it may have actually started before he left the house because he left all of his lights on which is highly unusual for him and there were other signs that he may have been confused when he left the house. Additionally, yesterday he had many things to take care of at his home in preparation for his daughter's wedding tomorrow and he did not get up until very late and he normally gets up extremely early every morning. They felt that he was moving somewhat slower than usual yesterday as well. He has no previous history of stroke or atrial fibrillation but was in atrial fibrillation on arrival here. After an extensive discussion with family and then reviewing his cell phone and consulting with family members, the last known well time was determined to be 6:30 PM last night. Past Medical History Allergies No Known Allergies Allergy (Verified 11/27/18 07:01) Home Medications: Ambulatory Orders Medication Instructions Recorded NK 11/27/18 Smoking Status: Never smoker Review of Systems Constitutional: Denies: Chills, Fever, Weight Change HEENT: Denies: Head Aches, Sinus Congestion, Sinus Drainage Cardiovascular: Denies: Chest Pain, Palpitations Respiratory: Denies: Cough, Shortness of breath at rest, Sputum production Gastrointestinal: Denies: Abdominal Pain, Nausea, Vomiting Genitourinary: Denies: Dysuria Musculoskeletal: Denies: Joint Pain, Joint Tenderness Skin: Denies: Rash, Wounds Neurological: Denies: Numbness, Tingling, Focal weakness Psychiatric: Denies: Anxiety, Depression, Homicidal Ideations, Suicidal Ideations Hematologic/ Lymphatic: Denies: Easy Bruising, Easy Bleeding Patient Problems: Active and Suspected Problems Acute ischemic stroke (Acute) - Physical Exam General: Alert, Oriented x3, Cooperative HEENT: Atraumatic, PERRLA, EOMI, Normocephalic Neck: Supple, No JVD, Negative Carotid Bruits Lungs: Clear to auscultation, Normal air movement Cardiovascular: Regular rate, No murmurs Abdomen: Bowel Sounds Present, Soft, Non Tender Extremities: No edema, Capillary Refill Less than 3 Seconds Skin: No rashes, No breakdown Musculoskeletal: No Tenderness to Palpation of Joints or Extremities Neurological: - - Awake and alert. He is unable to tell me his age or the month. He follows simple commands variably. There appears to be a right visual field cut, but no facial asymmetry. There may be some very mild weakness in his right upper and right lower extremity but there does not appear to be any sensory extinction, no pronator drift, and no discoordination with forearm orbit testing. There is severe aphasia. NIH stroke score is 5 Psych/Mental Status: Normal Affect, Appropriate Vital Signs Temp Pulse Resp BP Pulse Ox 36.6 C 107 H 16 154/99 H 96 11/27/18 09:02 11/27/18 09:13 11/27/18 09:02 11/27/18 09:02 11/27/18 09:02 Oxygen Delivery Method Room Air Weight: 107.1 kg Body Mass Index (BMI) 32.0 Finger Stick Blood Glucose 138 Laboratory Tests Past 24 Hrs 11/27/18 11/27/18 11/27/18 07:00 07:00 07:00 WBC 8.2 RBC 5.62 Hgb 17.2 H Hct 48.5 MCV 86.3 MCH 30.6 MCHC 35.5 RDW 13.3 RDW Differential 41.9 Plt Count 177 MPV 10.2 Immature Gran % (Auto) 0.100 Neut % (Auto) 75.7 H Lymph % (Auto) 14.4 L [place] % (Auto) 8.9 Eos % (Auto) 0.7 Baso % (Auto) 0.2 Absolute Neuts (auto) 6.2 Absolute Lymphs (auto) 1.18 Total Counted Not Reportable PT 14.5 INR 1.2 APTT 31.3 Sodium 141 Potassium 4.0 Chloride 108 H Carbon Dioxide 26.0 Anion Gap 7 BUN 16 Creatinine 1.11 Estim Creat Clear Calc 70.88 Est GFR (MDRD) Af Amer 85 Est GFR (MDRD) Non-Af 70 BUN/Creatinine Ratio 14.4 Glucose 111 H Calcium 8.7 Troponin I < 0.015 POC Glucose 11/27/18 06:59 POC Glucose [address] and CTA reviewed. No acute. There does not appear to be any significant vascular stenosis Assessment/Plan All Active Problems Acute ischemic stroke (Acute) Acute left MCA distribution stroke, likely due to A. fib. * PT/OT/speech therapy * await MRI * If MRI discloses a moderate to large stroke which I expected will will need Eliquis but would like to delay initiation due to risk of NEGATIVE CLEANER bleeding until up to 7 days after the onset of his symptoms which would be 12/02/2018 * Await echo results * He is otherwise okay to be discharged home, with outpatient follow-up, however I would recommend no driving
[2018-11-27] MEDS: Metoprolol Tartrate 25 MG Tablet PO ×2 (12:52→21:06)
--- NOTE | 2018-11-27 14:23 | CASEMGMT ---
SW attempted to complete PHQ-9 with patient due to Stroke. However, due to cognitive and speech impairments from Stroke patient was unable to complete. Patient also denied alcohol abuse. Angelika BORRERO MSW
--- NOTE | 2018-11-27 14:27 | PCM.HP.STD ---
Problem List (1) Acute ischemic stroke Status: Acute History of Present Illness Date of Admission: 11/27/18 Chief Complaint: CVA The patient is a 68 year old M with no significant past medical history presented to the ER from home with signs and symptoms consistent with an acute ischemic stroke. Because of the aphasia the patient is suffering from its difficult to obtain a clear history from him. 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 He called the son around 4:30 in the morning and his son could understand aware that he said they told him to lay in the sleeper cab until he got there. Everybody is unsure as to when it started however they have noticed that he left all the lights on his hand in his house on and therefore think that may have happened prior to leaving his house. In the ED his NIH was found to be a 6, and a CT scan was normal though it did show subacute infarct with an undetermined aged, and the CTAs of the head and neck were all normal. MRI is still pending. Also on admission he was found to be in A. fib with RVR. Past Medical History Allergies No Known Allergies Allergy (Verified 11/27/18 07:01) Home Medications: Ambulatory Orders Medication Instructions Recorded NK 11/27/18 Surgical History: colectomy, herniorrhaphy Smoking Status: Never smoker Alcohol: None Drugs: None - *Family History Paternal History Items: Cancer, Heart Disease Maternal History Items: Heart Disease Review of Systems Unable to obtain accurate/complete ROS d/t: Expressive aphasia VTE Information - Inpt Only VTE Present on Admission: No Patient Problems: Active and Suspected Problems Acute ischemic stroke (Acute) - Physical Exam General: Alert, No apparent distress, - HEENT: Atraumatic, PERRLA, Normocephalic Oral: Moist Mucosa Neck: Supple, No JVD Lungs: Clear to auscultation, Normal air movement, No rhonchi, No wheeze, No rales Cardiovascular: Regular rate, Regular Rhythm, Normal S1, Normal S2, No murmurs Abdomen: Soft, Non Tender, Non-Distended, No Hepato-splenomegaly Extremities: No edema, Capillary Refill Less than 3 Seconds Skin: No rashes, No breakdown Neurological: Motor Exam 5/5 strength throughout, Sensory exam intact to light touch and pain, - - He has significant aphasia and has difficulty following commands Psych/Mental Status: - - Unable to obtain secondary to his aphasia Vital Signs Temp Pulse Resp BP Pulse Ox 97.6 F L 69 16 105/88 H 94 11/27/18 12:51 11/27/18 12:52 11/27/18 12:51 11/27/18 12:51 11/27/18 12:51 Oxygen Delivery Method Room Air Weight: 236 lb 1.841 oz Body Mass Index (BMI) 32.0 Finger Stick Blood Glucose 138 Laboratory Tests Past 24 Hrs 11/27/18 11/27/18 11/27/18 07:00 07:00 07:00 WBC 8.2 RBC 5.62 Hgb 17.2 H Hct 48.5 MCV 86.3 MCH 30.6 MCHC 35.5 RDW 13.3 RDW Differential 41.9 Plt Count 177 MPV 10.2 Immature Gran % (Auto) 0.100 Neut % (Auto) 75.7 H Lymph % (Auto) 14.4 L [place] % (Auto) 8.9 Eos % (Auto) 0.7 Baso % (Auto) 0.2 Absolute Neuts (auto) 6.2 Absolute Lymphs (auto) 1.18 Total Counted Not Reportable PT 14.5 INR 1.2 APTT 31.3 Sodium 141 Potassium 4.0 Chloride 108 H Carbon Dioxide 26.0 Anion Gap 7 BUN 16 Creatinine 1.11 Estim Creat Clear Calc 70.88 Est GFR (MDRD) Af Amer 85 Est GFR (MDRD) Non-Af 70 BUN/Creatinine Ratio 14.4 Glucose 111 H Calcium 8.7 Troponin I < 0.015 POC Glucose 11/27/18 06:59 POC Glucose 138 H Assessment/Plan All Active Problems Acute ischemic stroke (Acute) 1. Acute ischemic stroke likely left MCA secondary to A. fib/A. fib with RVR -He was given a dose of metoprolol 25 mg and his heart rate went from the 110s down into the high 60s, will continue -We will start him on Lipitor 80 mg at night -PT/OT/speech therapy -Echo is pending as his MRI of the head -Given his inability to follow commands, I have concern about him going home and will see if he would be able to go to rehab -He will note need to be on Eliquis though will defer to neurology for when to initiate, will at least start aspirin -Continue with stroke protocol DVT: Ayan Code Visit Inpatient E&M: 86403 Init Hosp L2
--- NOTE | 2018-11-27 14:33 | HP.PCM_ITS ---
Problem List (1) Acute ischemic stroke Status: Acute History of Present Illness Date of Admission: 11/27/18 Chief Complaint: CVA The patient is a 68 year old M with no significant past medical history presented to the ER from home with signs and symptoms consistent with an acute ischemic stroke. Because of the aphasia the patient is suffering from its difficult to obtain a clear history from him. 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 He called the son around 4:30 in the morning and his son could understand aware that he said they told him to lay in the sleeper cab until he got there. Everybody is unsure as to when it started however they have noticed that he left all the lights on his hand in his house on and therefore think that may have happened prior to leaving his house. In the ED his NIH was found to be a 6, and a CT scan was normal though it did show subacute infarct with an undetermined aged, and the CTAs of the head and neck w ere all normal. MRI is still pending. Also on admission he was found to be in A. fib with RVR. Past Medical History Allergies No Known Allergies Allergy (Verified 11/27/18 07:01) Home Medications: Ambulatory Orders Medication Instructions Recorded NK 11/27/18 Surgical History: colectomy, herniorrhaphy Smoking Status: Never smoker Alcohol: None Drugs: None - *Family History Paternal History Items: Cancer, Heart Disease Maternal History Items: Heart Disease Review of Systems Unable to obtain accurate/complete ROS d/t: Expressive aphasia VTE Information - Inpt Only VTE Present on Admission: No Patient Problems: Active and Suspected Problems Acute ischemic stroke (Acute) - Physical Exam General: Alert, No apparent distress, - HEENT: Atraumatic, PERRLA, Normocephalic Oral: Moist Mucosa Neck: Supple, No JVD Lungs: Clear to auscultation, Normal air movement, No rhonchi, No wheeze, No rales Cardiovascular: Regular rate, Regular Rhythm, Normal S1, Normal S2, No murmurs Abdomen: Soft, Non Tender, Non-Distended, No Hepato-splenomegaly Extremities: No edema, Capillary Refill Less than 3 Seconds Skin: No rashes, No breakdown Neurological: Motor Exam 5/5 strength throughout, Sensory exam intact to light touch and pain, - - He has significant aphasia and has difficulty following commands Psych/Mental Status: - - Unable to obtain secondary to his aphasia Vital Signs Temp Pulse Resp BP Pulse Ox 97.6 F L 69 16 105/88 H 94 11/27/18 12:51 11/27/18 12:52 11/27/18 12:51 11/27/18 12:51 11/27/18 12:51 Oxygen Delivery Method Room Air Weight: 236 lb 1.841 oz Body Mass Index (BMI) 32.0 Finger Stick Blood Glucose 138 Laboratory Tests Past 24 Hrs 11/27/18 11/27/18 11/27/18 07:00 07:00 07:00 WBC 8.2 RBC 5.62 Hgb 17.2 H Hct 48.5 MCV 86.3 MCH 30.6 MCHC 35.5 RDW 13.3 RDW Differential 41.9 Plt Count 177 MPV 10.2 Immature Gran % (Auto) 0.100 Neut % (Auto) 75.7 H Lymph % (Auto) 14.4 L [place] % (Auto) 8.9 Eos % (Auto) 0.7 Baso % (Auto) 0.2 Absolute Neuts (auto) 6.2 Absolute Lymphs (auto) 1.18 Total Counted Not Reportable PT 14.5 INR 1.2 APTT 31.3 Sodium 141 Potassium 4.0 Chloride 108 H Carbon Dioxide 26.0 Anion Gap 7 BUN 16 Creatinine 1.11 Estim Creat Clear Calc 70.88 Est GFR (MDRD) Af Amer 85 Est GFR (MDRD) Non-Af 70 BUN/Creatinine Ratio 14.4 Glucose 111 H Calcium 8.7 Troponin I < 0.015 POC Glucose 11/27/18 06:59 POC Glucose 138 H Assessment/Plan All Active Problems Acute ischemic stroke (Acute) 1. Acute ischemic stroke likely left MCA secondary to A. fib/A. fib with RVR -He was given a dose of metoprolol 25 mg and his heart rate went from the 110s down into the high 60s, will continue -We will start him on Lipitor 80 mg at night -PT/OT/speech therapy -Echo is pending as his MRI of the head -Given his inability to follow commands, I have concern about him going home and will see if he would be able to go to rehab -He will note need to be on Eliquis though will defer to neurology for when to initiate, will at least start aspirin -Continue with stroke protocol DVT: Ayan Code Visit Inpatient E&M: [id number] Init Hosp L2
--- NOTE | 2018-11-27 15:59 | CASEMGMT ---
KALEE spoke with patient and his family regarding possibly going to the Inpatient Rehab Unit. They were in agreement with this plan. KALEE contacted Honey in the rehab unit and she will see if Dr Toribio will accept patient. Received a call from [facility] and Dr Toribio will not take patient. In order to get into rehab patient should require more than one therapy. Patient really only needs Speech Therapy not PT/OT. KALEE spoke with patient's son letting him know this information. He said patient will be able to stay with one of his children. They are aware he should not be alone right now. He was in agreement with outpatient Speech Therapy at [facility]. KALEE told him physician will likely discharge him tomorrow in time for the wedding. He was in agreement wit this plan. RONDA [facility] prepared order for outpatient therapy. Plan: Home with family with outpatient Speech Therapy. Angelika BORRERO INVERFORM MACHINE OPERATOR
[2018-11-27] MEDS: Atorvastatin Calcium 80 MG Tablet PO (21:06)
[2018-11-28 00:45] VITALS: BP 136/97; PULSE 65; RESP 18; TEMP 36.4; O2SAT 96
[2018-11-28 01:08] VITALS: BMI 32.0
[2018-11-28 03:00] VITALS: PULSE 77
[2018-11-28 04:45] VITALS: BP 139/100; PULSE 68; RESP 18; TEMP 36.7; O2SAT 95
[2018-11-28 06:06] LABS: Absolute Lymphocyte Count 1.23 X10^3/ul (0.83-4.51); Absolute Neutrophil Count 4.8 X10^3/uL (2.0-7.7); Basophil# 0.02 X10^3/uL; Basophil% 0.3 % (0-1); Eosinophil# 0.11 X10^3/uL; Eosinophils% 1.6 % (0-5); Hematocrit 45.9 % (40-54); Hemoglobin 15.9 g/dl (13.0-16.5); Lymphocyte # 1.23 X10^3/ul (4.0); Lymphocyte % 18.1 % (19-41); Mean Corp Hgb Conc 34.6 g/gl (32-36); Mean Corpuscular Hgb 30.6 pg (27.0-32.0); Mean Corpuscular Volume 88.3 fL (80-94); Mean Platelet Vol. 10.3 fl (6.2-12.0); Monocyte# 0.62 X10^3/uL; Monocyte% 9.1 % (0-10); Neutrophil % 70.8 % (47-70); Platelet Count 173 K/mm3 (150-450); RBC Distribution Width CV 13.2 % (11.6-14.6); RBC Distribution Width SD 42.4 fl (35.1-43.9); White Blood Count 6.8 K/mm3 (4.4-11.0)
[2018-11-28 06:07] LABS: POSITIVE COUNT NO; POSITIVE DIFFERENTIAL NO; POSITIVE MORPHOLOGY NO
[2018-11-28 06:27] LABS: Anion Gap 7 (5-15); BUN 12 mg/dL (7-18); BUN/Creat Ratio 12.6 RATIO (10-20); Calcium,Total 8.5 mg/dL (8.5-10.1); Chloride 110 mmol/L (98-107); Cholesterol 143 mg/dL (200); Creatinine, Serum 0.95 mg/dL (0.70-1.30); EST Glomerular Filtration Rate 84 mL/min (>60); Est Glom Filt Rate - Afr Amer 101 mL/min (>60); Estimated Creatinine Clearance 82.82 ml/min; Glucose 110 mg/dL (74-106); High Density Lipoprotein 34 mg/dL; Potassium 3.8 mmol/L (3.5-5.1); Sodium Level 144 mmol/L (136-145); Thyroid Stim Hormone (TSH) 1.59 uIU/mL (0.358-3.74); Triglycerides 141 mg/dL; Very Low Density Lipoprotein 28 mg/dL (5-40)
[2018-11-28 06:59] VITALS: PULSE 79
[2018-11-28 08:40] VITALS: BP 149/94; PULSE 96; RESP 16; TEMP 36.4; O2SAT 95
[2018-11-28 09:03] VITALS: PULSE 96
[2018-11-28] MEDS: Aspirin 81 MG TAB.CHEW PO (09:03)
[2018-11-28] MEDS: Metoprolol Tartrate 25 MG Tablet PO (09:03)
[2018-11-28] MEDS: 0.9% Normal Saline 1,000 ML 100 ML IV (09:03)
[2018-11-28] MEDS: Enoxaparin 40 MG/0.4 ML Syringe SC (09:04)
--- NOTE | 2018-11-28 09:18 | NURSING ---
Cost of eliquis is 427.97 per month. Free 30 day trial card given to patient with instructions to follow up with primary care physician regarding alternatives.
--- NOTE | 2018-11-28 09:51 | DCINST_ITS ---
- Discharge Diagnoses Current Active Problems: Current Active and Chronic Problems Acute ischemic stroke (Acute) You will use the following diet at home:: Regular Your food should be the consistency of: Regular Your liquids should be the consistency of: Regular/Thin Discharge Activity: May Not Drive Call your doctor if you observe: Fever of 101 or Higher, Shortness of breath, Dizziness, Fainting spells, Swelling in the ankles, Chest pain, Increased palpitations (irregular heartbeat) Allergies/Adverse Reactions: Allergies No Known Allergies Allergy (Verified 11/27/18 07:01) Medications to take at Discharge Apixaban [Eliquis] 5 mg PO BID #60 tab 11/28/18 Aspirin [Aspirin, Baby] 81 mg PO DAILY@0800 #30 tab.chew 11/28/18 Atorvastatin Calcium [Lipitor] 80 mg PO QHS #30 tab 11/28/18 Metoprolol Tartrate [Lopressor (beta ruthy)] 25 mg PO BID #60 tab 11/28/18 The following prescriptions were given: Aspirin [Aspirin, Baby] 81 mg PO DAILY@0800 #30 tab.chew Atorvastatin Calcium [Lipitor] 80 mg PO QHS #30 tab Apixaban [Eliquis] 5 mg PO BID #60 tab Metoprolol Tartrate [Lopressor (beta ruthy)] 25 mg PO BID #60 tab Primary Care Physician: Geraldo Blackwood [Primary Care Provider] - Please follow up with your Primary Care Physician in: 3-5 days Test Results: Test results from this visit will be discussed in further detail at your follow- up appointment, if applicable. Please Follow Up With: Jassi Toribio MD When: 1-2 weeks
--- NOTE | 2018-11-28 09:52 | PCM.DC.SUM ---
Discharge Date and Diagnosis Date of Admission: 11/27/18 Date of Discharge: 11/28/18 - Primary Discharge Diagnosis Active and Suspected Problems Acute ischemic stroke (Acute) Hospital Course and Treatment Imaging Results: CT Brain: FINDINGS: Normal ventricles. Mild cerebral cortical atrophy. Localized encephalomalacia compatible with remote infarction involving the posterior left frontal cortical and subcortical region. This area measures up to 3 cm in maximal dimension. This appears old. No mass-effect or acute hemorrhage seen. White matter small vessel chronic ischemic changes. Posterior fossa structures are unremarkable. No suspicious extra-axial fluid collection. Calvarium appears intact. As visualized, the mastoids and paranasal sinuses are clear. CTA Neck: IMPRESSION: 1. Negative exam. No carotid stenosis or arterial dissection. 2. Bilateral patency of the vertebral arteries. Individualized dose optimization techniques were used for this CT. CTA Head: IMPRESSION: 1. CTA exam is currently negative. No aneurysm or acute vessel occlusion. No arterial dissection seen. Individualized dose optimization techniques were used for this CT. MRI Brain:IMPRESSION: An acute infarction in the distribution of left middle cerebral artery. A small 2.8 x 1.1 cm area of old infarction involving the left frontal lobe Consults: Neurology Operations: None Procedures: 2-D Echocardiogram - Interpretation Summary The study was technically difficult. Contrast injection was performed. Left ventricular systolic function is normal. The estimated ejection fraction is 55 %. The left atrium is mildly enlarged. The right atrium is mildly enlarged. Mild (1+) mitral valve insufficiency. Trivial tricuspid valve insufficiency. Trivial pulmonic valve insufficiency. Right ventricular systolic pressure estimated to be 30 mmHg. Unable to assess diastolic dysfunction. Summary of Care Provided: Per HPI: The patient is a 68 year old M with no significant past medical history presented to the ER from home with signs and symptoms consistent with an acute ischemic stroke. Because of the aphasia the patient is suffering from its difficult to obtain a clear history from him. Based on the discussion with the son and chart review, he apparently up to his house at [address] to [employer] 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 He called the son around 4:30 in the morning and his son could understand aware that he said they told him to lay in the sleeper cab until he got there. Everybody is unsure as to when it started however they have noticed that he left all the lights on his hand in his house on and therefore think that may have happened prior to leaving his house. In the ED his NIH was found to be a 6, and a CT scan was normal though it did show subacute infarct with an undetermined aged, and the CTAs of the head and neck were all normal. MRI is still pending. Also on admission he was found to be in A. fib with RVR. Hospital Course: 1. Acute left MCA ischemic stroke/new onset A. fib with [id number]-old male presented from home with signs of an acute stroke. He initially had an NIH of 6 in the ER and had significant rest of aphasia as well as an inability to follow commands consistently. He did not know where he was or what year it was. He had an MRI which showed a left MCA distribution stroke, his CTAs of his head and neck were both normal and his CT brain was unremarkable except for a remote stroke. Initially when he came in his heart rate was in the 1 teens to 120s and he was started on metoprolol 25 mg twice daily p.o which he tolerated well. He was also started on aspirin and Lipitor despite his LDL being 81. His TSH was normal, and he will need to start Eliquis on 02 December because of his A. fib and his chads score being greater than 2. His echo was unremarkable with mild left atrial enlargement. He will need to follow-up with his PCP and neurology as an outpatient. His aphasia has continued though seems a little bit improved compared to when he came in. And he will need to follow-up with [facility] speech therapy in the coming weeks. It was expanded the family that he is not to live alone or to drive under any circumstance for the foreseeable future. It is his eldest daughter's wedding today and therefore he was discharged home with the understanding that if anything were to worsen he is to return to the hospital. The family understands and agrees to the plan. In terms of his A. fib he improved much faster than anticipated. Objective: General: Alert, No apparent distress, - HEENT: Atraumatic, PERRLA, Normocephalic Oral: Moist Mucosa Neck: Supple, No JVD Lungs: Clear to auscultation, Normal air movement, No rhonchi, No wheeze, No rales Cardiovascular: Regular rate, Regular Rhythm, Normal S1, Normal S2, No murmurs Abdomen: Soft, Non Tender, Non-Distended, No Hepato-splenomegaly Extremities: No edema, Capillary Refill Less than 3 Seconds Skin: No rashes, No breakdown Neurological: Motor Exam 5/5 strength throughout, Sensory exam intact to light touch and pain, - - He has significant aphasia and has difficulty following commands - Physical Exam Vital Signs Temp Pulse Resp BP Pulse Ox 97.6 F L 96 16 149/94 H 95 11/28/18 08:40 11/28/18 09:03 11/28/18 08:40 11/28/18 08:40 11/28/18 08:40 Oxygen Delivery Method Room Air Weight: 236 lb 1.841 oz Body Mass Index (BMI) 32.0 Finger Stick Blood Glucose 138 Intake and Output for Last 24 Hours 11/26/18 11/27/18 11/28/18 23:59 23:59 23:59 Intake Total 1163 / 1163 531 / 531 Balance 1163 / 1163 531 / 531 Laboratory Tests Past 24 Hrs 11/28/18 11/28/18 05:20 05:20 WBC 6.8 RBC 5.20 Hgb 15.9 Hct 45.9 MCV 88.3 MCH 30.6 MCHC 34.6 RDW 13.2 RDW Differential 42.4 Plt Count 173 MPV 10.3 Immature Gran % (Auto) 0.100 Neut % (Auto) 70.8 H Lymph % (Auto) 18.1 L Andrew % (Auto) 9.1 Eos % (Auto) 1.6 Baso % (Auto) 0.3 Absolute Neuts (auto) 4.8 Absolute Lymphs (auto) 1.23 Total Counted Not Reportable Sodium 144 Potassium 3.8 Chloride 110 H Carbon Dioxide 27.0 Anion Gap 7 BUN 12 Creatinine 0.95 Estim Creat Clear Calc 82.82 Est GFR (MDRD) Af Amer 101 Est GFR (MDRD) Non-Af 84 BUN/Creatinine Ratio 12.6 Glucose 110 H Calcium 8.5 Triglycerides 141 Cholesterol 143 LDL Cholesterol 81 VLDL Cholesterol 28 HDL Cholesterol 34 L TSH 1.59 Discharge Activity: May Not Drive Call your doctor if you observe: Fever of 101 or Higher, Shortness of breath, Dizziness, Fainting spells, Swelling in the ankles, Chest pain, Increased palpitations (irregular heartbeat) Home Medications: Medications to take at Discharge Apixaban [Eliquis] 5 mg PO BID #60 tab 11/28/18 Aspirin [Aspirin, Baby] 81 mg PO DAILY@0800 #30 tab.chew 11/28/18 Atorvastatin Calcium [Lipitor] 80 mg PO QHS #30 tab 11/28/18 Metoprolol Tartrate [Lopressor (beta ruthy)] 25 mg PO BID #60 tab 11/28/18 Following Prescrptions Were Given to Patient: Aspirin [Aspirin, Baby] 81 mg PO DAILY@0800 #30 tab.chew Atorvastatin Calcium [Lipitor] 80 mg PO QHS #30 tab Apixaban [Eliquis] 5 mg PO BID #60 tab Metoprolol Tartrate [Lopressor (beta ruthy)] 25 mg PO BID #60 tab Primary Care Physician: Geraldo Blackwood [Primary Care Provider] - Please follow up with your Primary Care Physician in: 3-5 days Please Follow Up With: Jassi Toribio MD When: 1-2 weeks Disposition: Home Minutes spent on discharge:: 35 Patient Condition:: Stable Medical Necessity - Tobacco Use Smoking Status: Never smoker Meaningful Use Info Meaningful Use Diagnoses (Choose all that apply): Ischemic CVA - CVA Therapy Assessed for PT,OT and/or ST?: Yes - Ischemic Stroke Antithrombotic order at d/c?: Yes Dx of Atrial fib/flutter?: Yes Anticoagulant at discharge?: Yes Statins at discharge?: Yes Primary Dx Acute Ischemic CVA?: Yes IV tPA ordered during stay?: No Reason IV t-PA not ordered: Procedure not Indicated Code Visit Inpatient E&M: 81655 Disch Hosp
[2018-11-28 09:54] VITALS: BMI 32.0
--- NOTE | 2018-11-30 10:55 | CASEMGMT ---
OP speech therapy order faxed by this [facility] at this time. Per [facility], they never received it previously. [facility] states that there is a wait list for OP speech and she states that she will note on chart that pt with acute CVA and need for immediate speech therapy. Family updated by Jay BOND in regards to same, voice understanding and states pt does have f/u with PCP tomorrow as well. Barney BOND CM
== END 2018-11-28 10:18 | disposition home or self-care (01) | DRG 66 ==
LOC: ED 08:06 → PCU 08:34
PROVIDERS: Admitting Provider Family Medicine; Emergency Provider Emergency Medicine; Family Provider Family Medicine; PCP Family Medicine; Visit Provider Family Medicine
DX: I63.512 Cerebral infarction due to unspecified occlusion or stenosis of left middle cerebral artery (principal); R47.01 Aphasia; R29.706 NIHSS score 6; I48.91 Unspecified atrial fibrillation; Z85.038 Personal history of other malignant neoplasm of large intestine
CPT/HCPCS: 36415; 70450; 70496; 70498; 70551; 71045; 80048; 80061; 82962; 84443; 84484; 85025; 85610; 85730; 92526; 92610; 93005; 93306; 96105; 97162; 97166; 97802; 99285; J7030; J7040; Q9957; Q9967; A4216; C8929

== ENCOUNTER → 2019-02-16 | Outpatient (CLI) | payer MEDICARE, SELFPAY ==
--- NOTE | 2019-02-16 14:41 | NEURO_ITS ---
NCS and/or EMG Patient Report Ordering Doctor: Varsha Lino DATE OF SERVICE: 02/16/19 This is a bilateral lower extremity nerve conduction study performed on this 68-year-old male who is had an 8-year history of [id number] sensation in his feet which is been progressively worse. He did receive chemotherapy 7 years ago and 3 months ago suffered a stroke. No history of diabetes or significant alcohol intake. Bilateral lower extremity sensory and motor nerve conduction studies demonstrate very mild decrease in conduction velocities diffusely. Distal latencies and amplitudes of the motor responses from the bilateral common peroneal nerves and tibial nerves are normal. The sural sensory responses are normal. F-wave latencies from the tibial and common near peroneal nerves bilaterally are normal and the tibial H reflex responses are slightly reduced in amplitude bilaterally. The patient deferred EMG testing. 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 Symptoms may be consistent more so with small fiber neuropathy. Other testing could include serum and urine protein electrophoresis, liver function tests, and B12 level to evaluate for treatable causes of neuropathy. 02/16/19 1008 <Electronically signed by Jassi watson MD> Date _ Jassi Toribio MD CC: EDMAR Wayne; Jassi Toribio MD ~ Date Dictated: 02/16/191004 Date Transcribed: 02/16/191004 Cdl Service Technician: NF Signed
== END | disposition home or self-care (01) ==
LOC: PSN 07:49
PROVIDERS: Family Provider Family Medicine; PCP Family Medicine; Referring Provider Nurse Practitioner Family; Visit Provider Nurse Practitioner Family
DX: R20.2 Paresthesia of skin (principal); R20.0 Anesthesia of skin; Z86.73 Personal history of transient ischemic attack (TIA), and cerebral infarction without residual deficits
CPT/HCPCS: 95910

== ENCOUNTER → 2019-03-12 | Outpatient (CLI) | payer MEDICARE, SELFPAY ==
[2019-03-12 11:31] LABS: ALB/GLOB Ratio 1.1 RATIO (0.9-2.4); AST(SGOT) 28 U/L (15-37); Alanine Aminotransfer ALT/SGPT 33 U/L (16-61); Albumin, Serum 3.5 g/dL (3.2-5.0); Alkaline Phosphatase 78 U/L (45-117); Anion Gap 4 (5-15); BUN 11 mg/dL (7-18); BUN/Creat Ratio 11.6 RATIO (10-20); Bilirubin, Direct 0.26 mg/dL (0.00-0.30); CRP < 2.90 mg/L (0.0-3.0); Calcium,Total 8.6 mg/dL (8.5-10.1); Chloride 110 mmol/L (98-107); Creatinine, Serum 0.95 mg/dL (0.70-1.30); EST Glomerular Filtration Rate 84 mL/min (>60); Est Glom Filt Rate - Afr Amer 102 mL/min (>60); Globulin 3.3 g/dL (2.2-4.2); Glucose 91 mg/dL (74-106); Potassium 3.9 mmol/L (3.5-5.1); Protein, Total 6.8 g/dL (6.4-8.2); Sodium Level 141 mmol/L (136-145)
[2019-03-13 08:43] LABS: Vitamin B12 251 pg/mL (211-911)
[2019-03-16 16:34] LABS: PROEL- A/G Ratio 1.3 (0.7-1.7); PROEL- Albumin 3.5 g/dL (2.9-4.4); PROEL- Alpha-1 Globulin 0.2 g/dL (0.0-0.4); PROEL- Alpha-2 Globulin 0.7 g/dL (0.4-1.0); PROEL- Beta Globulin 0.9 g/dL (0.7-1.3); PROEL- Globulin, Total 2.8 g/dL (2.2-3.9); PROEL- TOTAL PROTEIN 6.3 g/dL (6.0-8.5); PROELU- Alpha-1-Globulin,Ur 4.3 % (.); PROELU- Alpha-2-Globulin,Ur 13.4 % (.); PROELU- Beta Globulin, Ur 20.3 % (.); Total Protein, Ur 18.1 mg/dL (Not Estab.)
== END | disposition home or self-care (01) ==
LOC: LAB 10:24
PROVIDERS: Family Provider Family Medicine; PCP Family Medicine; Referring Provider Nurse Practitioner Family; Visit Provider Nurse Practitioner Family
DX: G62.9 Polyneuropathy, unspecified (principal)
CPT/HCPCS: 36415; 80053; 82248; 82607; 84165; 84166; 86140

== ENCOUNTER 2021-09-03 07:23 | Emergency (ER) | payer MEDICARE, OTHER, SELFPAY ==
[2021-09-03 07:23] VITALS: BP 154/86; PULSE 77; RESP 14; TEMP 36.7; O2SAT 94; BMI 30.3
--- NOTE | 2021-09-03 07:56 | EDS_ITS ---
HPI History of Present Illness Chief Complaint: Complaint Narrative Narrative: Patient presents with urinary retention. He was recently discharged after having gross hematuria, he went home last night and again he is unable to urinate. No fevers chills or abdominal pain. [facility] Medical History Hematuria Home Medications aspirin 81 mg PO DAILY@0800 #30 tab.chew 11/28/18 [Rx Last Taken Unknown] atorvastatin 80 mg PO QHS #30 tab 11/28/18 [Rx Last Taken Unknown] metoprolol tartrate 25 mg PO BID #60 tab 11/28/18 [Rx Last Taken Unknown] Allergy/AdvReac Type Severity Reaction Status Date / Time No Known Allergies Allergy Verified 09/03/21 07:28 Social History Smoking Status: Never smoker ROS ROS ED ROS Narrative Past medical history: Reviewed Medications: Reviewed Social history: Noncontributory Review of systems: All systems negative except as indicated General: No fever Cardiovascular: No chest pain Respiratory: No shortness of breath or cough Gastrointestinal: No diarrhea, no nausea or vomiting. Lower abdominal pain as in HPI Genitourinary: As in HPI Musculoskeletal: Denies myalgias no difficulty with ambulation Skin: No rash Neurological: No memory loss, confusion or any focal weakness Psych: No recent behavioral changes Hematologic: No easy bleeding or easy bruising EXAM Physical Exam Narrative Exam Narrative: Physical exam General: Patient appears uncomfortable. Head: Normocephalic, Atraumatic Eyes: Conjunctiva not pale ENT: Moist mucous membranes Neck: Supple, Nontender, No lymphadenopathy Cardiovascular: Regular rate, Regular rhythm Respiratory: No distress, CTA bilaterally Abdomen: Soft, suprapubic pain, there is a mass and distention. normal external genitalia Back: Nontender, Normal Inspection. Negative for: CVA tenderness Extremities: Nontender, No edema Skin: Normal color, No rash Neurological: Alert, Normal Strength, Normal Sensation Psychological: Normal affect Const Vital Signs: 09/03/21 07:23 Temperature 98.1 F Temperature Source Temporal Pulse Rate 77 Respiratory Rate 14 Blood Pressure 154/86 H Blood Pressure Mean 108 Pulse Ox 94 Oxygen Delivery Method Room Air MDM MDM MDM Narrative Medical decision making narrative: Contreras catheter was placed by nurse, 2 L of urine were obtained, patient feels much better I will discharge him with the Contreras catheter and a leg bag. Discharge Plan Triage Chief Complaint: Complaint ED Provider: Arthur Lott Dx/Rx/DC Orders Clinical Impression: Acute urinary retention Instructions: ED Contreras Catheter, Care Prescriptions: No Action atorvastatin 80 MG tablet 80 mg PO QHS Qty: 30 RF: 0 aspirin 81 MG tablet,chewable 81 mg PO DAILY@0800 Qty: 30 RF: 0 metoprolol tartrate 25 MG tablet 25 mg PO BID Qty: 60 RF: 0 Primary Care Provider: Geraldo Blackwood Referrals: Jaspal Warner MD [STAFF PHYSICIAN] - 3-5 Days Geraldo Blackwood MD [Primary Care Provider] - Disposition Disposition: Home, Self Care
== END 2021-09-03 08:37 | disposition home or self-care (01) ==
LOC: ED 08:08
PROVIDERS: Emergency Provider Emergency Medicine; PCP Family Medicine; Visit Provider Emergency Medicine
DX: R33.9 Retention of urine, unspecified (principal); Z79.82 Long term (current) use of aspirin; Z79.899 Other long term (current) drug therapy
CPT/HCPCS: 51702; 99283; A4216

== ENCOUNTER 2022-11-07 12:35 | Emergency (ER) | payer MEDICARE, OTHER, SELFPAY ==
[2022-11-07] VITALS (7 sets, daily range): BP systolic 64–132; BP diastolic 50–81; PULSE 62–99; RESP 15–26; TEMP 36.3; O2SAT 94–98; BMI 29.9
--- NOTE | 2022-11-07 12:59 | EKG12_ITS ---
Test Reason : SYNCOPE Blood Pressure : / mmHG Vent. Rate : 093 BPM Atrial Rate : 312 BPM P-R Int : 000 ms QRS Dur : 098 ms QT Int : 384 ms P-R-T Axes : 000 -29 067 degrees QTc Int : 477 ms Atrial fibrillation Nonspecific ST abnormality Abnormal ECG Confirmed by HENNY LOYA, RAMYA ([id number]), purchase request editor STEPHANIE MERCADO ([id number]) on 11/11/2022 11:39:25 AM Referred By: ELIEL Confirmed By:RAMYA INMAN MD
--- NOTE | 2022-11-07 13:02 | EX.ED.DYSGE1 ---
HPI <EDMAR Cerna - Last Filed: 11/07/22 17:49> History of Present Illness Chief Complaint: Syncope Narrative Narrative: Patient presenting today with his daughter due to weakness that he has had over the past 3 months. His daughter states that over the past 3 months he has been short of breath with exertion. He also states that over the past 3 months he has random episodes of syncope and falls whenever he goes to stand up from a sitting/laying position. He reports that he did not have a syncopal episode today. Patient states that he is worried that he is having a mini stroke because of these falls/syncopal episodes. He does have a history of a stroke that occurred several years ago. He states that he has a difficult time ambulating due to pain in his left leg and decreased strength. Patient does live at home by himself but his son comes to check on him daily. He also reports dysuria without any hematuria or urinary frequency. Patient has a past medical history of colon cancer that is in remission. PFSH <EDMAR Cerna - Last Filed: 11/07/22 17:49> [facility] [place] Medical History (Updated 11/07/22 @ 16:[address] Cholo Salazar, DO) Enlarged prostate H/O colon cancer, stage I Hematuria Stroke Home Medications aspirin 81 mg chewable tablet 81 mg PO DAILY@0800 ##30 11/28/18 [Rx Last Taken Unknown] atorvastatin 80 mg tablet 80 mg PO QHS #30 tabs 11/28/18 [Rx Last Taken Unknown] metoprolol tartrate 25 mg tablet 25 mg PO BID #60 tabs 11/28/18 [Rx Last Taken Unknown] levofloxacin 750 mg tablet 750 mg PO DAILY 4 days #4 tabs 11/07/22 [Rx Last Taken Unknown] Allergy/AdvReac Type Severity Reaction Status Date / Time No Known Allergies Allergy Verified 09/03/21 07:28 Social History Smoking Status: Never smoker ROS <EDMAR Cerna - Last Filed: 11/07/22 17:49> ROS ED Constitutional Constitutional ED: Denies chills or fever(s) Eyes Eyes: Denies blurry vision or diplopia Cardiovascular Cardiovascular: Denies chest pain or palpitations Respiratory/Chest Respiratory/Chest: Reports dyspnea on exertion; Denies cough Gastrointestinal Gastrointestinal: Denies abdominal pain, nausea or vomiting Genitourinary Genitourinary ED: Reports dysuria; Denies hematuria or urinary urgency Musculoskeletal Musculoskeletal: Denies arthralgias or myalgias Integumentary Denies abscess, Abrasions or rash Neurologic Neurologic: Denies confusion, dizziness or paresthesias Psychiatric Psychiatric: Denies anxiety, depression, suicidal ideation or suicidal thoughts EXAM <EDMAR Cerna - Last Filed: 11/07/22 17:49> Physical Exam Const Vital Signs: 11/07/22 12:39 11/07/22 12:54 11/07/22 12:58 Temperature 97.4 F L Temperature Source Temporal Pulse Rate 81 95 Pulse Rate [Lying] Pulse Rate [Sitting (for 1 minute prior to obtaining)] Pulse Rate [Standing (for 1 minute prior to obtaining)] Respiratory Rate 18 26 H Respiratory Pattern Normal Blood Pressure 70/55 L 82/63 L Blood Pressure [Lying] Blood Pressure [Sitting (for 1 minute prior to obtaining)] Blood Pressure [Standing (for 1 minute prior to obtaining)] Blood Pressure Mean 60 69 Blood Pressure Mean [Lying] Blood Pressure Mean [Sitting (for 1 minute prior to obtaining)] Blood Pressure Mean [Standing (for 1 minute prior to obtaining)] Pulse Ox 94 Oxygen Delivery Method Room Air 11/07/22 13:11 11/07/22 14:49 11/07/22 16:01 Temperature Temperature Source Pulse Rate 89 Pulse Rate [Lying] 84 Pulse Rate [Sitting (for 1 minute prior to obtaining)] 97 Pulse Rate [Standing (for 1 minute prior to obtaining)] 99 Respiratory Rate 18 Respiratory Pattern Blood Pressure 97/81 H Blood Pressure [Lying] 89/69 L Blood Pressure [Sitting (for 1 minute prior to obtaining)] 90/69 Blood Pressure [Standing (for 1 minute prior to obtaining)] 64/50 L Blood Pressure Mean 86 Blood Pressure Mean [Lying] 75 Blood Pressure Mean [Sitting (for 1 minute prior to obtaining)] 76 Blood Pressure Mean [Standing (for 1 minute prior to obtaining)] 54 Pulse Ox 94 96 Oxygen Delivery Method Room Air Room Air 11/07/22 16:20 Temperature Temperature Source Pulse Rate 62 Pulse Rate [Lying] Pulse Rate [Sitting (for 1 minute prior to obtaining)] Pulse Rate [Standing (for 1 minute prior to obtaining)] Respiratory Rate 15 Respiratory Pattern Blood Pressure 132/77 H Blood Pressure [Lying] Blood Pressure [Sitting (for 1 minute prior to obtaining)] Blood Pressure [Standing (for 1 minute prior to obtaining)] Blood Pressure Mean Blood Pressure Mean [Lying] Blood Pressure Mean [Sitting (for 1 minute prior to obtaining)] Blood Pressure Mean [Standing (for 1 minute prior to obtaining)] Pulse Ox 98 Oxygen Delivery Method Positive well nourished, well developed and no apparent distress General Appearance ED: well developed HEENT Reports normocephalic and head/scalp atraumatic Mouth ED: Yes moist mucous membranes normal Eyes PERRL and EOMs intact bilaterally Neck full ROM and supple Chest Wall inspection of chest normal Resp normal respiratory effort and clear to auscultation bilaterally Cardio regular rate and regular rhythm GI soft to palpation, non-tender, non-distended and no masses Back/Spine normal ROM and normal to inspection Extremity normal to inspection and full ROM Neuro oriented x3, CN's II-XII intact bilaterally, moves all extremities, no focal motor deficits and no sensory deficits noted Sensorium / Orientation: awake and alert Psych mental status grossly normal and thought process normal Skin no rashes or lesions noted and no wounds <Dr. Cholo Salazar, DO - Last Filed: 11/07/22 16:17> Physical Exam Const Vital Signs: 11/07/22 12:39 11/07/22 12:54 11/07/22 12:58 Temperature 97.4 F L Temperature Source Temporal Pulse Rate 81 95 Pulse Rate [Lying] Pulse Rate [Sitting (for 1 minute prior to obtaining)] Pulse Rate [Standing (for 1 minute prior to obtaining)] Respiratory Rate 18 26 H Respiratory Pattern Normal Blood Pressure 70/55 L 82/63 L Blood Pressure [Lying] Blood Pressure [Sitting (for 1 minute prior to obtaining)] Blood Pressure [Standing (for 1 minute prior to obtaining)] Blood Pressure Mean 60 69 Blood Pressure Mean [Lying] Blood Pressure Mean [Sitting (for 1 minute prior to obtaining)] Blood Pressure Mean [Standing (for 1 minute prior to obtaining)] Pulse Ox 94 Oxygen Delivery Method Room Air 11/07/22 13:11 11/07/22 14:49 11/07/22 16:01 Temperature Temperature Source Pulse Rate 89 Pulse Rate [Lying] 84 Pulse Rate [Sitting (for 1 minute prior to obtaining)] 97 Pulse Rate [Standing (for 1 minute prior to obtaining)] 99 Respiratory Rate 18 Respiratory Pattern Blood Pressure 97/81 H Blood Pressure [Lying] 89/69 L Blood Pressure [Sitting (for 1 minute prior to obtaining)] 90/69 Blood Pressure [Standing (for 1 minute prior to obtaining)] 64/50 L Blood Pressure Mean 86 Blood Pressure Mean [Lying] 75 Blood Pressure Mean [Sitting (for 1 minute prior to obtaining)] 76 Blood Pressure Mean [Standing (for 1 minute prior to obtaining)] 54 Pulse Ox 94 96 Oxygen Delivery Method Room Air Room Air 11/07/22 16:20 Temperature Temperature Source Pulse Rate 62 Pulse Rate [Lying] Pulse Rate [Sitting (for 1 minute prior to obtaining)] Pulse Rate [Standing (for 1 minute prior to obtaining)] Respiratory Rate 15 Respiratory Pattern Blood Pressure 132/77 H Blood Pressure [Lying] Blood Pressure [Sitting (for 1 minute prior to obtaining)] Blood Pressure [Standing (for 1 minute prior to obtaining)] Blood Pressure Mean Blood Pressure Mean [Lying] Blood Pressure Mean [Sitting (for 1 minute prior to obtaining)] Blood Pressure Mean [Standing (for 1 minute prior to obtaining)] Pulse Ox 98 Oxygen Delivery Method [facility] <EDMAR Cerna - Last Filed: 11/07/22 17:49> [facility] Narrative Medical decision making narrative: Patient presenting today due to multiple falls that have occurred over the past 3 months he states that he does have syncopal episodes when these falls occur and they are usually when he goes to stand up from a sitting/lying position. His neuro examination is normal. He is hypotensive here at 64/50, he is getting a liter of IV fluids. He is orthostatic positive and when he went to stand up, he requested to lie back down as he was beginning to feel very off balance. Labs will be obtained to rule out leukocytosis, anemia, MALKA, electrolyte abnormality. Labs overall are unremarkable. UA does show a UTI. Chest x-ray suggestive of a lower lobe pneumonia. However, given patient's shortness of breath and remote history of cancer, CT of the chest will be obtained to rule out PE. CTA does not show any evidence of a PE but does show pneumonia. Patient will be started on levofloxacin to cover both UTI and pneumonia. He was ambulated and remained above 92% on room air. Shared decision making with patient regarding admission to the hospital for treatment and patient would like to go home. His daughter states that he will now be having 24-hour care at home between his son and grandson. Patient states he feels very safe being discharged home. I have encouraged him to follow-up with his PCP. He does have orthostatic hypotension and I have encouraged him to take precautions when standing up. He will be discharged home in stable condition and is comfortable with plan. Lab Data Attestation: I reviewed the patient's lab results. Lab results narrative: UA does show UTI, CBC without any leukocytosis, BMP without any MALKA or anion gap. Labs: Laboratory Results - last 24 hr 11/07/22 11/07/22 11/07/22 13:00 13:00 13:17 WBC 7.9 RBC 4.90 Hgb 13.8 Hct 41.9 MCV 85.5 MCH 28.2 MCHC 32.9 RDW Std Deviation 46.5 H RDW Coeff of Mauro 14.8 H Plt Count 278 MPV 9.4 Immature Gran % (Auto) 0.500 Neut % (Auto) 77.3 H Lymph % (Auto) 9.3 L [place] % (Auto) 8.6 Eos % (Auto) 3.5 Baso % (Auto) 0.8 Absolute Neuts (auto) 6.1 Absolute Lymphs (auto) 0.74 L Nucleated RBC % 0 Sodium 136 Potassium 3.8 Chloride 101 Carbon Dioxide 28.0 Anion Gap 7 BUN 16 Creatinine 1.16 Estim Creat Clear Calc 69.81 Est GFR (MDRD) Af Amer 80 Est GFR (MDRD) Non-Af 66 BUN/Creatinine Ratio 13.8 Glucose 134 H Calcium 8.6 Urine Color Yellow Urine Clarity Sl. Cloudy Urine pH 5.0 Ur Specific [place] 1.020 Urine Protein 30 H Urine Glucose (UA) Normal Urine Ketones 5 H Urine Occult Blood 25 H Urine Nitrite Negative Urine Bilirubin 1 H Urine Urobilinogen 8 H Ur Leukocyte Esterase 100 H Urine RBC 0 SEEN Urine WBC 0-5 SEEN Ur Squamous Epith Cells 0-5 SEEN Urine Bacteria 1+ Hyaline Casts 0-5 SEEN Urine Mucus 1+ Radiography Diagnostic Testing: Clinical Impression(s) from Imaging Studies Chest X-Ray 11/07/22 13:15 IMPRESSION: Blunting of the left costo phrenic angle with increased markings at the left lung base suggestive of atelectasis and/or early infiltrate. Electronically Signed: Kenneth Davis MD at 13:49 EDT , Chest CTA 11/07/22 13:19 IMPRESSION: No evidence of prone and was in pain Bibasilar pulmonary infiltrates worse at the left lung base. Electronically Signed: Kenneth Davis MD at 14:44 EDT , EKG Initial EKG: Comments: 93 bpm, atrial fibrillation, no ST elevation, reviewed and interpreted by attending ED physician. <Dr. Cholo Salazar, DO - Last Filed: 11/07/22 16:17> [facility] Lab Data Labs: Laboratory Results - last 24 hr 11/07/22 11/07/22 11/07/22 13:00 13:00 13:17 WBC 7.9 RBC 4.90 Hgb 13.8 Hct 41.9 MCV 85.5 MCH 28.2 MCHC 32.9 RDW Std Deviation 46.5 H RDW Coeff of Mauro 14.8 H Plt Count 278 MPV 9.4 Immature Gran % (Auto) 0.500 Neut % (Auto) 77.3 H Lymph % (Auto) 9.3 L [place] % (Auto) 8.6 Eos % (Auto) 3.5 Baso % (Auto) 0.8 Absolute Neuts (auto) 6.1 Absolute Lymphs (auto) 0.74 L Nucleated RBC % 0 Sodium 136 Potassium 3.8 Chloride 101 Carbon Dioxide 28.0 Anion Gap 7 BUN 16 Creatinine 1.16 Estim Creat Clear Calc 69.81 Est GFR (MDRD) Af Amer 80 Est GFR (MDRD) Non-Af 66 BUN/Creatinine Ratio 13.8 Glucose 134 H Calcium 8.6 Urine Color Yellow Urine Clarity Sl. Cloudy Urine pH 5.0 Ur Specific [place] 1.020 Urine Protein 30 H Urine Glucose (UA) Normal Urine Ketones 5 H Urine Occult Blood 25 H Urine Nitrite Negative Urine Bilirubin 1 H Urine Urobilinogen 8 H Ur Leukocyte Esterase 100 H Urine RBC 0 SEEN Urine WBC 0-5 SEEN Ur Squamous Epith Cells 0-5 SEEN Urine Bacteria 1+ Hyaline Casts 0-5 SEEN Urine Mucus 1+ Radiography Diagnostic Testing: Clinical Impression(s) from Imaging Studies Chest X-Ray 11/07/22 13:15 IMPRESSION: Blunting of the left costo phrenic angle with increased markings at the left lung base suggestive of atelectasis and/or early infiltrate. Electronically Signed: Kenneth Davis MD at 13:49 EDT , Chest CTA 11/07/22 13:19 IMPRESSION: No evidence of prone and was in pain Bibasilar pulmonary infiltrates worse at the left lung base. Electronically Signed: Kenneth Davis MD at 14:44 EDT , Treatment and Re-Evaluation :: I have personally performed a face to face assessment of the patient and have reviewed the BRUNO Note. I performed a substantive portion of the visit including all aspects of the following. My trejo findings include: History: Patient presents with a syncopal episodes that have been occurring over the past few months. Patient states he was standing when he passed out. Patient states he had walked a couple steps when he passed out. Patient denies any chest pain or palpitations. Patient denies any lightheadedness or dizziness. Patient denies any nausea or vomiting. Patient denies any diaphoresis. Patient states he remembers starting to walk and then remembers laying on the floor. Patient denies any pain. Patient denies any headaches. Patient states he feels weak today. Exam: Vital signs are stable. Patient is afebrile. Patient is in no acute distress. Cranial nerves II through XII are intact. There are no focal motor or sensory deficits noted. Pupils are equal, round, and reactive to light bilaterally. Extraocular muscles are intact. Conjunctiva is clear. Heart was regular rate and rhythm. Lungs are clear and equal bilaterally. Abdomen is soft. Bowel sounds are normal. There is no tenderness. There is no guarding noted. Medical Decision Making: Differential diagnosis includes cardiac dysrhythmia, cardiac ischemia, pulmonary embolism, electrolyte abnormality, urinary tract infection, pneumonia, and dehydration. EKG will be obtained to assess for cardiac dysrhythmia and cardiac ischemia. Chest x-ray will be obtained to assess for pneumonia and pneumothorax. CBC will be obtained to assess for leukocytosis and anemia. Basic metabolic profile will be obtained to assess for electrolyte abnormality and renal function. Urinalysis will be obtained to assess for urinary tract infection. CTA of the chest will be obtained to assess for pulmonary embolism. CBC was reviewed and was within normal limits. Basic metabolic profile was reviewed and was essentially within normal limits. Urinalysis was reviewed. There is a leukocyte Estrace of 100 but 0-5 white blood cells. There is 1+ bacteria. There are negative nitrates. Chest x-ray was obtained. There is 1 view. On my independent interpretation, there is atelectasis versus infiltrate in the left lower lobe. There is blunting of the costophrenic angle. CTA of the chest was obtained. There is no evidence of pulmonary embolism. There are bibasilar pulmonary infiltrates, worse on the left. This was interpreted by the radiologist and was independently reviewed by myself. Patient was advised of his findings. Patient was able to ambulate in the emergency department without becoming hypoxic. Patient wants to go home. Patient and daughter feel safe going home. Patient was given a dose of Levaquin here. Patient was given a prescription for Levaquin. Patient was instructed to follow-up with his primary care physician in 5 to 7 days. Patient understood and was agreeable with the plan. All questions were answered. Discharge Plan Triage Chief Complaint: Syncope Other Complaint: Dizziness Fall Weakness ED Midlevel Provider: Reina Ye ED Provider: Cholo Salazar Dx/Rx/DC Orders Clinical Impression: Pneumonia, Orthostatic hypotension, Syncope, Weakness Instructions: Causes of Syncope, ED Hypotension, Orthostatic, ED Pneumonia (Adult) Prescriptions: New levofloxacin 750 mg tablet 750 mg PO DAILY 4 Days Qty: 4 0RF No Action atorvastatin 80 MG tablet 80 mg PO QHS Qty: 30 0RF aspirin 81 MG tablet,chewable 81 mg PO DAILY@0800 Qty: 30 0RF metoprolol tartrate 25 MG tablet 25 mg PO BID Qty: 60 0RF Primary Care Provider: Geraldo Blackwood Referrals: Geraldo Blackwood MD [Primary Care Provider] - 3-5 Days Activity Restrictions/Additional Instructions: Please be sure to stay well-hydrated, follow-up with your PCP and return for any worsening of symptoms. Take antibiotic as prescribed. Disposition Disposition: Home, Self Care Discharge Date/Time: 11/07/22 16:21
[2022-11-07 13:13] LABS: Absolute Lymphocyte Count 0.74 X10^3/uL (0.83-4.51); Absolute Neutrophil Count 6.1 X10^3/uL (2.0-7.7); Basophil# 0.06 X10^3/uL; Basophil% 0.8 % (0-1); Eosinophil# 0.28 X10^3/uL; Eosinophils% 3.5 % (0-5); Hematocrit 41.9 % (40-54); Hemoglobin 13.8 g/dL (13.0-16.5); Lymphocyte # 0.74 X10^3/ul (0.83-4.51); Lymphocyte % 9.3 % (19-41); Mean Corp Hgb Conc 32.9 g/dL (32-36); Mean Corpuscular Hgb 28.2 pg (27.0-32.0); Mean Corpuscular Volume 85.5 fL (80-94); Mean Platelet Vol. 9.4 fl (6.2-12.0); Monocyte# 0.68 X10^3/uL; Monocyte% 8.6 % (0-10); NRBC Flagged by Analyzer 0 % (0-5); Neutrophil # 6.12 X10^3/uL (2.7-7.7); Neutrophil % 77.3 % (47-70); Platelet Count 278 K/mm3 (150-450); RBC Distribution Width CV 14.8 % (11.6-14.6); RBC Distribution Width SD 46.5 fl (35.1-43.9); White Blood Count 7.9 K/mm3 (4.4-11.0)
--- NOTE | 2022-11-07 13:15 | RAD_ITS ---
STUDY: X-RAY CHEST REASON FOR EXAM: Male, 72 years old. SOB . Weakness and fatigue. Dizziness. TECHNIQUE: Single AP portable view of the chest. COMPARISON: None. FINDINGS: EKG electrodes are seen. There is blunting of the left costo phrenic angle with increased markings at the left lung base suggestive of atelectasis and/or infiltrate. Normal size heart. Normal mediastinum and vivienne. Normal visualized pulmonary arteries. Normal visualized aortic arch and descending thoracic aorta. Normal visualized thoracic spine. Normal visualized ribs, clavicles, and shoulders. There is no demonstrated abnormality of the visualized soft tissue structures of the upper abdomen. RAD/Chest 1 View (Portable) IMPRESSION: Blunting of the left costo phrenic angle with increased markings at the left lung base suggestive of atelectasis and/or early infiltrate. Electronically Signed: Kenneth Davis MD at 13:49 EDT ,
--- NOTE | 2022-11-07 13:19 | CT_ITS ---
STUDY: CTA CHEST REASON FOR EXAM: Male, 72 years old. Rule out PE. Weakness. Dizziness. History of colon cancer. RADIATION DOSAGE (If Supplied By Facility): CTDIvol = ( 17.07 ) mGy, DLP = ( 530.79 ) mGycm TECHNIQUE: The examination was performed with the intravenous administration of IV 100mL [id number]-[id number]. Post-processing of the angiographic images was performed, with multiplanar reformation and 3D reconstruction. Individualized dose optimization techniques were used for this CT. COMPARISON: Comparison is made with prior chest radiograph done earlier in the day. FINDINGS: Normal enhancement of the main pulmonary artery and right and left pulmonary arteries. Normal enhancement of the bilateral peripheral pulmonary arteries. There is no demonstrated pulmonary embolism. Normal thoracic aorta and visualized great vessels. There is no demonstrated aortic dissection. There are calcifications of the coronary arteries. There are visualized mediastinal lymph nodes, which are within normal size limits, and with normal morphology. Normal hilar regions. Normal visualized trachea and bronchi. The lungs are well expanded. Bibasilar pulmonary infiltrates worse at the left lung base. Normal pleura. Normal chest wall structures. There are degenerative changes of thoracic spine. Normal visualized upper abdomen. CT/CTA Chest W/WO Contrast IMPRESSION: No evidence of prone and was in pain Bibasilar pulmonary infiltrates worse at the left lung base. Electronically Signed: Kenneth Davis MD at 14:44 EDT ,
[2022-11-07 13:25] LABS: Anion Gap 7 (5-15); BUN 16 mg/dL (7-18); BUN/Creat Ratio 13.8 RATIO (10-20); Calcium,Total 8.6 mg/dL (8.5-10.1); Chloride 101 mmol/L (98-107); Creatinine, Serum 1.16 mg/dL (0.70-1.30); EST Glomerular Filtration Rate 66 mL/min (>60); Est Glom Filt Rate - Afr Amer 80 mL/min (>60); Estimated Creatinine Clearance 69.81 ml/min; Glucose 134 mg/dL (74-106); Potassium 3.8 mmol/L (3.5-5.1); Sodium Level 136 mmol/L (136-145)
[2022-11-07 13:25] LABS: Red Blood Cells-Urine 0 SEEN /hpf (0-5)
[2022-11-07 13:30] LABS: Color, Urine Yellow (Yellow); Glucose, Dipstick Normal (Normal); Ketone-Dipstick 5 mg/dl (Negative); Leukocyte Esterase-Dipstick 100 /ul (Negative); Nitrite-Dipstick Negative (Negative); Occult Blood-Urine 25 /ul (Negative); Protein-Dipstick 30 mg/dl (Negative); Urine Clarity Sl. Cloudy (Clear); Urine Urobilinogen 8 mg/dl (Normal)
[2022-11-07 13:32] LABS: Urine Bilirubin Dipstick 1 mg/dL (Negative)
[2022-11-07 13:36] LABS: White Blood Cells 0-5 SEEN /hpf (0-5)
[2022-11-07 13:37] LABS: Bacteria 1+ /hpf (None Seen); Hyaline Cast 0-5 SEEN /lpf (0-5); Mucous, Urine 1+ /hpf (<or=2+); Squamous Epithelial Cells - UA 0-5 SEEN /hpf (0-5)
[2022-11-07] MEDS: levoFLOXacin 750 MG Tablet PO (16:00)
== END 2022-11-07 16:21 | disposition home or self-care (01) ==
PROVIDERS: Physician Assistant; Emergency Provider Emergency Medicine; PCP Family Medicine; Visit Provider Emergency Medicine
DX: J18.9 Pneumonia, unspecified organism (principal); I95.1 Orthostatic hypotension; R53.1 Weakness; Z79.82 Long term (current) use of aspirin; Z79.899 Other long term (current) drug therapy; Z86.73 Personal history of transient ischemic attack (TIA), and cerebral infarction without residual deficits
CPT/HCPCS: 71045; 71275; 80048; 81001; 85025; 93005; 99283; J7030; Q9967; A4216